=== PATIENT | female | born 1955 | race Caucasian/White ===

== ENCOUNTER → 2016-08-20 | Outpatient (CLI) | payer BC ==
[~2016-08-20] MED LIST: AMIT50TA3; AMIT50TA3 PO; AMITRIPTYLIN; BUTA1TAB46 PO; CITA40TA19; COLE1TAB PO; CTLP20T; DIALTIAZEM PO; DILT120T11 PO; DOXY100C2 PO; ESTRAD; GABA300C; KETO-22 PO; LORA1TAB; LVT.1T; MESA1.2T PO; METH4TAB PO; SITA1TAB2; VICTOZA SC
--- OUTSIDE RECORDS SUMMARY | 2016-08-20 14:35 | XMS REPORT | Continuity of Care Document ---
Author Author [facility] Organization [facility] Address Unknown Phone Unavailable Care Team Providers Care Advertising Manager Name Role Phone PCP Unavailable Source Comments Some departments are not documenting in the electronic medical record. If you do not see the information that you expected, contact Release of Information in the Health Information Management department at [phone] for further assistance in locating additional records.[facility] Active Allergies and Adverse Reactions Not on File Current Medications Not on file Active Problems Not on file Social History Tobacco Use Types Packs/Day Years Used Date Never Assessed Plan of Care Health Maintenance Due Date Last Done Comments Physical (Comprehensive) 1963 Exam Pertussis Vaccine 1967 Tetanus Vaccine 1973 Cervical Cancer Screening 1977 Breast Cancer Screening 1996 Colorectal Cancer 2006 Screening Influenza Vaccine 03/01/2016 Results from Last 3 Months Not on file
--- NOTE | 2016-08-22 09:41 | ECHOCARDIOGRAPHY REPORT ---
PROCEDURE PHYSICIAN: REJI CANSECO DATE OF PROCEDURE: 08/20/2016 TWO DIMENSIONAL ECHOCARDIOGRAM REPORT PRIMARY PHYSICIAN: Dr. Arguello OTHER PHYSICIAN: REFERRING PHYSICIAN: ORDERING PHYSICIAN: Dr. Yong Mcclain INDICATION FOR THE PROCEDURE: Palpitations. MEASUREMENTS DERIVED VALUES LV DIAMETER (LAX) NORMALS NORMALS Diastolic 3.6 (3.6-5.2) Eject. Fract. (60%+/-6%) Systolic (2.3-3.9) Diastolic Vol. % Shortening (0.22-0.42) Systolic Vol. Aortic Root 2.9 IVS THICKNESS Diastolic 1 (0.6-1.1) LVPW THICKNESS Diastolic 1.1 (0.6-1.1) LA DIAMETER Systolic 3.5 (2.1-3.7) DESCRIPTION: Two-dimensional echocardiography shows normal global left ventricular systolic function with normal regional wall motion. Aortic, mitral and tricuspid valve leaflets show good leaflet excursion. There is no significant pericardial effusion. Chamber sizes appear to be within normal limits. Aortic valve leaflet structure is difficult to visualize. It does, in some views, appear to be trileaflet. Doppler imaging shows trivial tricuspid regurgitation. Pulmonary artery systolic pressure is estimated 30 mmHg. There is no Doppler evidence of any significant valvular stenosis. Subcostal views are difficult and not adequate for evaluation for intracardiac shunt. Inferior vena cava appears to be of normal size. CONCLUSIONS: 1. Normal global left ventricular systolic function with an ejection fraction of approximately 60 to 65%. 2. Trivial tricuspid regurgitation. 3. Pulmonary artery systolic pressure is estimated to be approximately 30 mmHg. 4. No evidence of any significant valvular stenosis. Job ID: [id number] Dictated Date: 08/21/2016 16:55:42 Licensed Appraiser Date: 08/22/2016 09:34:07 / mayi
== END ==
LOC: CARD 14:32
DX: R00.2 Palpitations (principal); G43.D1 Abdominal migraine, intractable
CPT/HCPCS: 93306

== ENCOUNTER → 2016-08-23 | Outpatient (CLI) | payer BC ==
[~2016-08-23] MED LIST changes: +GADOBUTROL 10 MMOL/10 ML (GADAVIST) VIAL IV ONE
--- OUTSIDE RECORDS SUMMARY | 2016-08-23 14:24 | XMS REPORT | Continuity of Care Document ---
Author Author [facility] Organization [facility] Address Unknown Phone Unavailable Care Team Providers Care Dining Car Hop Name Role Phone PCP Unavailable Source Comments Some departments are not documenting in the electronic medical record. If you do not see the information that you expected, contact Release of Information in the Health Information Management department at [phone] for further assistance in locating additional records.[facility] Active Allergies and Adverse Reactions Not [...]
--- NOTE | 2016-08-23 15:50 | Diagnostic Imaging Report ---
PROCEDURE: MR angiography of the brain without the use of contrast. TECHNIQUE: 3D [id number] non contrast enhanced MR angiography of the head was performed. A source data was reformatted into rotating MIP projections. INDICATION: Migraines. FINDINGS: There are no previous MRA examinations available for comparison. The MRI brain exam of 06/18/2013 failed to show any sign of an acute intracranial abnormality. On this exam, there is no evidence for an aneurysm of the [place]. There is no sign of a hemodynamically significant stenosis either. The vertebral arteries were not well visualized, but the basilar artery is unremarkable. IMPRESSION: There is no evidence for an aneurysm of the [place]. There is no sign of an acute vascular abnormality either. Dictated by: Dictated on workstation # [id number]
--- NOTE | 2016-08-23 16:48 | Diagnostic Imaging Report ---
PROCEDURE: MR imaging of the brain with and without contrast. TECHNIQUE: Multiplanar, multisequence MR imaging of the brain was performed with and without contrast. INDICATION: Migraines. FINDINGS: The previous MRI brain exam of 06/18/2013 failed to show any sign of an acute intracranial abnormality. On this study, there is still no mass, shift of the midline, or hemorrhage to suggest an acute abnormality. There is no abnormal signal arising from the brain on the diffusion series to indicate an area of acute ischemia either. Furthermore, there is no abnormal enhancement on the post contrast sequence to suggest a neoplastic or infectious process. The ventricles are not abnormally dilated and similar in size to the prior exam. There are few very small areas of increased signal in the periventricular white matter bilaterally on the FLAIR series. These findings are similar to the prior exam. These areas of altered signal are nonspecific but may be secondary to encephalomalacia from microvascular ischemia. The sella is not enlarged and the expected carotid flow voids are evident bilaterally. The orbits are symmetrical and within normal limits. The sinuses are generally clear. The seventh and eighth nerve complexes are unremarkable. IMPRESSION: 1. There is no evidence for an acute intracranial abnormality. 2. There is no abnormal enhancement on the post contrast series to suggest a neoplastic or infectious process. 3. When compared to the previous exam, there does not appear to have been any significant change. Dictated by: Dictated on workstation # [id number]
--- NOTE | 2016-08-23 17:12 | Diagnostic Imaging Report ---
PROCEDURE: MR angiography neck with contrast. TECHNIQUE: Contrast-enhanced MR angiography of the neck was performed. Source data was reformatted into rotating MIP projection. INDICATION: Neck pain and headaches. FINDINGS: There are no previous MRA examinations available for comparison. The CTA neck exam performed on 03/20/2008 is not available for direct comparison either. The report from that exam failed to show any abnormality of the carotid systems. On this exam, there is no sign of a hemodynamically significant stenosis of the common or internal carotid arteries. The vertebral arteries are patent and codominant. There is no abnormality of the origins of the great vessels. IMPRESSION: 1. There is no evidence for a hemodynamically significant stenosis of the common or internal carotid arteries. 2. The vertebral arteries are codominant and generally unremarkable. Dictated by: Dictated on workstation # [id number]
== END ==
LOC: RAD 14:21
PROVIDERS: ATTEND Psychiatry & Neurology Neurology
DX: G43.D0 Abdominal migraine, not intractable (principal)
CPT/HCPCS: 70544; 70548; 70553

== ENCOUNTER → 2017-01-08 | Outpatient (CLI) | payer BC ==
[~2017-01-08] MED LIST changes: -GADOBUTROL 10 MMOL/10 ML (GADAVIST) VIAL IV ONE
--- NOTE | 2017-01-10 09:49 | Diagnostic Imaging Report ---
Bilateral screening mammogram 2D views with tomosynthesis The current study was also evaluated with a Computer Aided Detection (CAD) system. Indication: Screening. No current complaints stated on the questionnaire. COMPARISON: 11/30/15 FINDINGS: The breasts are composed of scattered fibroglandular densities with slightly more density in the central aspect of the breast parenchyma bilaterally. Scattered benign-appearing calcifications seen. Allowing for technique and positional differences, no suspicious change is seen. IMPRESSION: No significant change. ACR BI-RADS Category 2: Benign findings. Result letter will be mailed to the patient. Note: At least 10% of breast cancer is not imaged by mammography. Dictated by: Dictated on workstation # [id number]
== END ==
LOC: RAD 14:03
PROVIDERS: ATTEND Family Medicine
DX: Z12.31 Encounter for screening mammogram for malignant neoplasm of breast (principal)
CPT/HCPCS: 77067

== ENCOUNTER → 2017-06-07 | Outpatient (CLI) | payer BC ==
--- NOTE | 2017-06-10 10:47 | Diagnostic Imaging Report ---
EXAMINATION: Gated cardiac CTA without contrast for calcium scoring was performed. INDICATION: Chest pain. TECHNIQUE: A retrospective ECG gated cardiac CT was performed from the cardiac apex to the base without intravenous contrast and calcium scoring was obtained. FINDINGS: Please note the there is mild the cardiac motion artifact despite the ECG gating. No coronary artery calcifications are identified. The total calcium score is zero. The heart size is normal. There is no pericardial effusion. The visualized portions of the lungs demonstrate no nodule or significant consolidation. IMPRESSION: The total calcium score of zero suggests a very low likelihood of significant coronary artery disease. Dictated by: Dictated on workstation # [id number]
== END ==
LOC: RAD 10:55
PROVIDERS: ATTEND Physician Assistant Medical
DX: R07.89 Other chest pain (principal); I10 Essential (primary) hypertension
CPT/HCPCS: 75571

== ENCOUNTER 2017-07-26 05:36 | Outpatient (CLI) | payer BC ==
[~2017-07-26] VITALS: Ht 162.6 cm; Wt 88.5 kg
[2017-07-26] MEDS ORDERED: LEVO88TA54 PO (09:18)
[2017-07-26] MEDS ORDERED: CYAN100088 PO (09:18)
[2017-07-26] MEDS ORDERED: PANT40TA2 PO (09:18)
[2017-07-26] MEDS ORDERED: EMPA10TA PO (09:18)
[2017-07-26] MEDS ORDERED: FLUO20TA28 PO (09:18)
[2017-07-26] MEDS ORDERED: CHOL100048 PO (09:18)
[2017-07-26] MEDS ORDERED: AMIT100T2 PO (09:18)
[2017-07-26] MEDS ORDERED: NEBI5TAB8 PO (09:18)
[2017-07-26] MEDS ORDERED: ESTR1TAB24 PO (09:18)
[2017-07-26] MEDS ORDERED: ATOR20TA66 PO (09:18)
== END 2017-07-26 09:21 ==
LOC: PREOP 05:36
PROVIDERS: ATTEND Surgery
DX: Z01.818 Encounter for other preprocedural examination (principal); K21.9 Gastro-esophageal reflux disease without esophagitis; R13.10 Dysphagia, unspecified

== ENCOUNTER 2017-07-29 09:49 | Day surgery (SDC) | payer BC ==
[~2017-07-29] VITALS: Ht 162.6 cm; Wt 88.5 kg
[~2017-07-29 09:49] MED LIST changes: +AMIT100T2 PO; +ATOR20TA66 PO; +CHOL100048 PO; +CYAN100088 PO; +EMPA10TA PO; +ESTR1TAB24 PO; +FLUO20TA28 PO; +LEVO88TA54 PO; +NEBI5TAB8 PO; +PANT40TA2 PO
[2017-07-29] MEDS ORDERED: HURRICAINE EXT TUBE (BENZOCAINE) XX PRN (10:00)
[2017-07-29] MEDS ORDERED: NS IV 500 ML 500 ML IV PRN (10:00)
[2017-07-29 10:13] VITALS: BP 138/78
--- OUTSIDE RECORDS SUMMARY | 2017-07-29 10:16 | XMS REPORT | Continuity of Care Document ---
Author Author [facility] Organization [facility] Address Unknown Phone Unavailable Allergies Active Description Code Type Severity Reaction Onset Reported/Identified Relationship to Patient Clinical Status Yes metoclopramide [id number] Drug Allergy Mild N/A 05/19/2008 Yes codeine [id number] Drug Allergy Unknown N/A 01/04/2012 Medications There is no data. Problems Date Dx Coded Attending Type Code Diagnosis Diagnosed By 03/16/2010 Ot 535.40 03/16/2010 Ot V45.89 04/04/2010 Ot 307.81 04/04/2010 Ot 723.1 01/07/2012 Ot 244.9 HYPOTHYROIDISM NOS 01/07/2012 Ot 535.50 UNSP GASTRITIS GASTRODUODENITIS W/O ME 01/07/2012 Ot 787.91 DIARRHEA 01/07/2012 Ot V58.69 OTH MED,LT, CURRENT USE 02/02/2012 Ot 244.9 HYPOTHYROIDISM NOS 02/02/2012 Ot 250.00 DIAB JOSELIN WO COMPL, TYPE II OR UNSPEC TY 02/02/2012 Ot 333.94 RESTLESS LEGS SYNDROME 02/02/2012 Ot 401.9 HYPERTENSION NOS 02/02/2012 Ot 530.81 ESOPHAGEAL REFLUX 02/02/2012 Ot 780.60 FEVER, UNSPECIFIED 02/02/2012 Ot 780.96 GENERALIZED PAIN 02/02/2012 Ot 784.0 HEADACHE 02/02/2012 Ot 787.01 NAUSEA WITH VOMITING 05/14/2014 AXEL MEEHANP Ot 790.5 12/17/2014 AXEL MEEHANP Ot V76.12 06/20/2015 Ot V76.12 06/20/2015 Ot V76.12 06/20/2015 Ot 611.71 06/20/2015 Ot 722.52 06/20/2015 Ot 401.9 06/20/2015 Ot 490 06/20/2015 Ot V72.84 06/20/2015 Ot V76.12 06/20/2015 Ot 562.00 06/20/2015 Ot 786.50 06/20/2015 Ot 787.01 06/20/2015 Ot 780.60 06/20/2015 Ot 785.6 06/20/2015 Ot 789.00 06/20/2015 Ot 793.19 06/20/2015 QUINN JEFF, MACY Sorto Ot 721.0 06/20/2015 QUINN JEFF, MACY Sorto Ot 784.0 06/20/2015 SHARON SAMUELS DOLINE S Ot 611.72 06/20/2015 RIDINGS, CASEY 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 Ot 722.4 06/20/2015 RIDINGS, CASEY 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 Ot 737.30 06/20/2015 RIDINGS, CASEY 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 Ot 784.0 06/20/2015 RIDINGS, CASEY 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 Ot E000.8 06/20/2015 RIDINGS, CASEY 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 Ot E849.0 06/20/2015 RIDINGS, CASEY 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 Ot E888.9 06/20/2015 SHARON SAMUELS DOLINE S Ot 719.45 06/20/2015 CHARITY SAMUELS DOQUELINE S Ot 786.59 06/20/2015 CHARITY SAMUELS DOQUELINE S Ot V72.84 06/20/2015 AXEL MEEHAN ROPEWALK ROPE MAKER Ot V76.12 06/20/2015 SACHI JEFF, JOSE ELIAS Ot 722.51 06/20/2015 SACHI JEFF, JOSE ELIAS Ot 738.4 06/20/2015 AXEL MEEHANP Ot 790.5 06/20/2015 AXEL MEEHANP Ot V76.12 06/27/2015 Ot V76.12 06/27/2015 Ot V76.12 06/27/2015 Ot 611.71 06/27/2015 Ot 722.52 06/27/2015 Ot 401.9 06/27/2015 Ot 490 06/27/2015 Ot V72.84 06/27/2015 Ot V76.12 06/27/2015 Ot 562.00 06/27/2015 Ot 786.50 06/27/2015 Ot 787.01 06/27/2015 Ot 780.60 06/27/2015 Ot 785.6 06/27/2015 Ot 789.00 06/27/2015 Ot 793.19 06/27/2015 QUINN JEFF, MACY Sorto Ot 721.0 06/27/2015 QUINN JEFF, MACY Sorto Ot 784.0 06/27/2015 ARVIND HOSKINS, YOU S Ot 611.72 06/27/2015 RIDSASKIA, CASEY 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 Ot 722.4 06/27/2015 RIDINGS, CASEY 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 Ot 737.30 06/27/2015 RIDINGS, CASEY 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 Ot 784.0 06/27/2015 RIDINGS, CASEY 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 Ot E000.8 06/27/2015 RIDINGS, CASEY 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 Ot E849.0 06/27/2015 RIDINGS, CASEY 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 Ot E888.9 06/27/2015 ARVIND HOSKINS, YOU S Ot 719.45 06/27/2015 ARVIND HOSKINS YOU S Ot 786.59 06/27/2015 ARVIND HOSKINS YOU S Ot V72.84 06/27/2015 AXEL MEEHAN M ROPEWALK ROPE MAKER Ot V76.12 06/27/2015 SACHI JEFF, JOSE ELIAS Ot 722.51 06/27/2015 SACHI JEFF, JOSE ELIAS Ot 738.4 06/27/2015 AXEL MEEHAN M ROPEWALK ROPE MAKER Ot 790.5 06/27/2015 HERBIE MEEHANSA M R[employer]WALK ROPE MAKER Ot V76.12 06/27/2015 CHRISTOPHER ÁLVAREZ R[employer]WALK ROPE MAKER Ot E03.9 06/27/2015 CHRISTOPHER ÁLVAREZ R[employer]WALK ROPE MAKER Ot E11.9 06/27/2015 CHRISTOPHER ÁLVAREZ ROPEWALK ROPE MAKER Ot I10 06/27/2015 CHRISTOPHER ÁLVAREZ ROPEWALK ROPE MAKER Ot Z84.81 2015 CHRISTOPHER ÁLVAREZ ROPEWALK ROPE MAKER Ot E03.9 2015 CHRISTOPHER ÁLVAREZ ROPEWALK ROPE MAKER Ot E11.9 2015 CHRISTOPHER ÁLVAREZ ROPEWALK ROPE MAKER Ot I10 2015 CHRISTOPHER ÁLVAREZ ROPEWALK ROPE MAKER Ot Z84.81 07/13/2015 AXEL MEEHAN M ROPEWALK ROPE MAKER Ot R10.9 11/30/2015 Ot V76.12 OTH SCREEN MAMMO-MALIGN NEOPLASM OF ANDERS 11/30/2015 Ot 611.71 MASTODYNIA 11/30/2015 Ot 722.52 LUMB/ LUMBOSAC DISC DEGEN 11/30/2015 Ot 401.9 HYPERTENSION NOS 11/30/2015 Ot 490 BRONCHITIS NOS 11/30/2015 Ot V72.84 EXAM PRE- OPERATIVE NOS 11/30/2015 Ot V76.12 OTH SCREEN MAMMO-MALIGN NEOPLASM OF ANDERS 11/30/2015 Ot 562.00 DIVERTICULOSIS SML INTESTINE (W/O MENT O 11/30/2015 Ot 786.50 CHEST PAIN NOS 11/30/2015 Ot 787.01 NAUSEA WITH VOMITING 11/30/2015 Ot 780.60 FEVER, UNSPECIFIED 11/30/2015 Ot 785.6 ENLARGEMENT LYMPH NODES 11/30/2015 Ot 789.00 ABDOMINAL PAIN, UNSPECIFIED SITE 11/30/2015 Ot 793.19 OTHER NONSPECIFIC ABNORMAL FINDING OF MELANIE 11/30/2015 QUINN JEFF, MACY Sorto Ot 721.0 CERVICAL SPONDYLOSIS 11/30/2015 QUINN JEFF, MACY Sorto Ot 784.0 HEADACHE 11/30/2015 ARVIND HOSKINS, YOU S Ot 611.72 LUMP OR MASS IN BREAST 11/30/2015 RIDINGS, CASEY 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 Ot 722.4 CERVICAL DISC DEGEN 11/30/2015 RIDINGS, CASEY 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 Ot 737.30 IDIOPATHIC SCOLIOSIS 11/30/2015 RIDINGS, CASEY 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 Ot 784.0 HEADACHE 11/30/2015 RIDINGS, CASEY 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 Ot E000.8 OTHER EXTERNAL CAUSE STATUS 11/30/2015 RIDINGS, CASEY 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 Ot E849.0 ACCIDENT IN HOME 11/30/2015 RIDINGS, CASEY 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 Ot E888.9 FALL NOS 11/30/2015 MARILIANDROGELIO HOSKINS, YOU S Ot 719.45 JOINT PAIN-PELVIS 11/30/2015 CHARITY SAMUELS DOQUELINE S Ot 786.59 CHEST PAIN NEC 11/30/2015 MARILIANDROGELIO HOSKINS, YOU S Ot V72.84 EXAM PRE-OPERATIVE NOS 11/30/2015 AXEL MEEHAN Ot V76.12 OTH SCREEN MAMMO-MALIGN NEOPLASM OF ANDERS 11/30/2015 SACHI JEFF, JOSE ELIAS Ot 722.51 THORACIC DISC DEGEN 11/30/2015 SACHI JEFF, JOSE ELIAS Ot 738.4 ACQ SPONDYLOLISTHESIS 11/30/2015 AXEL MEEHAN ROPEWALK ROPE MAKER Ot 790.5 ABN SERUM ENZY LEVEL NEC 11/30/2015 AXEL MEEHAN ROPEWALK ROPE MAKER Ot V76.12 OTH SCREEN MAMMO-MALIGN NEOPLASM OF ANDERS 11/30/2015 CHRISTOPHER ÁLVAREZ ROPEWALK ROPE MAKER Ot E03.9 HYPOTHYROIDISM, UNSPECIFIED 11/30/2015 CHRISTOPHER ÁLVAREZ ROPEWALK ROPE MAKER Ot E11.9 TYPE 2 DIABETES MELLITUS WITHOUT COMPLIC 11/30/2015 CHRISTOPHER ÁLVAREZ ROPEWALK ROPE MAKER Ot I10 ESSENTIAL (PRIMARY) HYPERTENSION 11/30/2015 CHRISTOPHER ÁLVAREZ ROPEWALK ROPE MAKER Ot Z84.81 FAMILY HISTORY OF CARRIER OF GENETIC DIS 11/30/2015 AXEL MEEHAN ROPEWALK ROPE MAKER Ot R10.9 UNSPECIFIED ABDOMINAL PAIN 12/01/2015 YOU SAMUELS DO S Ot Z12.31 ENCNTR SCREEN MAMMOGRAM FOR MALIGNANT NE 12/21/2015 YOU SAMUELS DO S Ot Z12.31 ENCNTR SCREEN MAMMOGRAM FOR MALIGNANT NE 03/19/2016 Ot V76.12 OTH SCREEN MAMMO-MALIGN NEOPLASM OF ANDERS 03/19/2016 Ot 611.71 MASTODYNIA 03/19/2016 Ot 722.52 LUMB/ LUMBOSAC DISC DEGEN 03/19/2016 Ot 401.9 HYPERTENSION NOS 03/19/2016 Ot 490 BRONCHITIS NOS 03/19/2016 Ot V72.84 EXAM PRE- OPERATIVE NOS 03/19/2016 Ot V76.12 OTH SCREEN MAMMO-MALIGN NEOPLASM OF ANDERS 03/19/2016 Ot 562.00 DIVERTICULOSIS SML INTESTINE (W/O MENT O 03/19/2016 Ot 786.50 CHEST PAIN NOS 03/19/2016 Ot 787.01 NAUSEA WITH VOMITING 03/19/2016 Ot 780.60 FEVER, UNSPECIFIED 03/19/2016 Ot 785.6 ENLARGEMENT LYMPH NODES 03/19/2016 Ot 789.00 ABDOMINAL PAIN, UNSPECIFIED SITE 03/19/2016 Ot 793.19 OTHER NONSPECIFIC ABNORMAL FINDING OF MELANIE 03/19/2016 QUINN JEFF, MACY Sorto Ot 721.0 CERVICAL SPONDYLOSIS 03/19/2016 QUINN JEFF, MACY Sorto Ot 784.0 HEADACHE 03/19/2016 ARVIND HOSKINSSHARONYOU S Ot 611.72 LUMP OR MASS IN BREAST 03/19/2016 RIDINGS, CASEY 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 Ot 722.4 CERVICAL DISC DEGEN 03/19/2016 RIDINGS, CASEY 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 Ot 737.30 IDIOPATHIC SCOLIOSIS 03/19/2016 RIDINGS, CASEY 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 Ot 784.0 HEADACHE 03/19/2016 RIDINGS, CASEY 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 Ot E000.8 OTHER EXTERNAL CAUSE STATUS 03/19/2016 RIDINGS, CASEY 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 Ot E849.0 ACCIDENT IN HOME 03/19/2016 RIDSASKIA, CASEY 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 Ot E888.9 FALL NOS 03/19/2016 CHARITY SAMUELS DOQUELINE S Ot 719.45 JOINT PAIN-PELVIS 03/19/2016 CHARITY SAMUELS DOQUELINE S Ot 786.59 CHEST PAIN NEC 03/19/2016 SHARON SAMUELS DOLINE S Ot V72.84 EXAM PRE-OPERATIVE NOS 03/19/2016 AXEL MEEHAN ROPEWALK ROPE MAKER Ot V76.12 OTH SCREEN MAMMO-MALIGN NEOPLASM OF ANDERS 03/19/2016 SACHI JEFF, JOSE ELIAS Ot 722.51 THORACIC DISC DEGEN 03/19/2016 SACHI JEFF, JOSE ELIAS Ot 738.4 ACQ SPONDYLOLISTHESIS 03/19/2016 AXEL MEEHANP Ot 790.5 ABN SERUM ENZY LEVEL NEC 03/19/2016 AXEL MEEHAN ROPEWALK ROPE MAKER Ot V76.12 OTH SCREEN MAMMO-MALIGN NEOPLASM OF ANDERS 03/19/2016 CHRISTOPHER ÁLVAREZ ROPEWALK ROPE MAKER Ot E03.9 HYPOTHYROIDISM, UNSPECIFIED 03/19/2016 CHRISTOPHER ÁLVAREZ ROPEWALK ROPE MAKER Ot E11.9 TYPE 2 DIABETES MELLITUS WITHOUT COMPLIC 03/19/2016 CHRISTOPHER ÁLVAREZ ROPEWALK ROPE MAKER Ot I10 ESSENTIAL (PRIMARY) HYPERTENSION 03/19/2016 CHRISTOPHER ÁLVAREZ ROPEWALK ROPE MAKER Ot Z84.81 FAMILY HISTORY OF CARRIER OF GENETIC DIS 03/19/2016 AXEL MEEHAN ROPEWALK ROPE MAKER Ot R10.9 UNSPECIFIED ABDOMINAL PAIN 03/19/2016 SHARON SAMUELS DOLINE S Ot Z12.31 ENCNTR SCREEN MAMMOGRAM FOR MALIGNANT NE 03/20/2016 QUINN JEFF, MACY J Ot M54.10 RADICULOPATHY, SITE UNSPECIFIED 03/28/2016 QUINN JEFF, MACY Sorto Ot M54.10 RADICULOPATHY, SITE UNSPECIFIED 08/17/2016 Ot 611.71 MASTODYNIA 08/17/2016 Ot 722.52 LUMB/ LUMBOSAC DISC DEGEN 08/17/2016 Ot 401.9 HYPERTENSION NOS 08/17/2016 Ot 490 BRONCHITIS NOS 08/17/2016 Ot V72.84 EXAM PRE- OPERATIVE NOS 08/17/2016 Ot V76.12 OTH SCREEN MAMMO-MALIGN NEOPLASM OF ANDERS 08/17/2016 Ot 562.00 DIVERTICULOSIS SML INTESTINE (W/O MENT O 08/17/2016 Ot 786.50 CHEST PAIN NOS 08/17/2016 Ot 787.01 NAUSEA WITH VOMITING 08/17/2016 Ot 780.60 FEVER, UNSPECIFIED 08/17/2016 Ot 785.6 ENLARGEMENT LYMPH NODES 08/17/2016 Ot 789.00 ABDOMINAL PAIN, UNSPECIFIED SITE 08/17/2016 Ot 793.19 OTHER NONSPECIFIC ABNORMAL FINDING OF MELANIE 08/17/2016 QUINN JEFF, MACY Sorto Ot 721.0 CERVICAL SPONDYLOSIS 08/17/2016 QUINN JEFF, MACY Sorto Ot 784.0 HEADACHE 08/17/2016 YOU SAMUELS DO S Ot 611.72 LUMP OR MASS IN BREAST 08/17/2016 RIDINGS, CASEY 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 Ot 722.4 CERVICAL DISC DEGEN 08/17/2016 RIDINGS, CASEY 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 Ot 737.30 IDIOPATHIC SCOLIOSIS 08/17/2016 RIDINGS, CASEY 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 Ot 784.0 HEADACHE 08/17/2016 RIDINGS, CASEY 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 Ot E000.8 OTHER EXTERNAL CAUSE STATUS 08/17/2016 RIDINGS, CASEY 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 Ot E849.0 ACCIDENT IN HOME 08/17/2016 RIDINGS, CASEY 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 Ot E888.9 FALL NOS 08/17/2016 YOU SAMUELS DO S Ot 719.45 JOINT PAIN-PELVIS 08/17/2016 SHARON SAMUELS DOLINE S Ot 786.59 CHEST PAIN NEC 08/17/2016 YOU SAMUELS DO S Ot V72.84 EXAM PRE-OPERATIVE NOS 08/17/2016 AXEL MEEHAN ROPEWALK ROPE MAKER Ot V76.12 OTH SCREEN MAMMO-MALIGN NEOPLASM OF ANDERS 08/17/2016 SACHI JEFF, JOSE ELIAS Ot 722.51 THORACIC DISC DEGEN 08/17/2016 JOSE ELIAS KARIMI MD Ot 738.4 ACQ SPONDYLOLISTHESIS 08/17/2016 ULIJEANNEAXEL MENDOZA ROPEWALK ROPE MAKER Ot 790.5 ABN SERUM ENZY LEVEL NEC 08/17/2016 ULIJEANNECLARANAINAAXEL ROPEWALK ROPE MAKER Ot V76.12 OTH SCREEN MAMMO-MALIGN NEOPLASM OF ANDERS 08/17/2016 CHRISTOPHER ÁLVAREZ ROPEWALK ROPE MAKER Ot E03.9 HYPOTHYROIDISM, UNSPECIFIED 08/17/2016 CHRISTOPHER ÁLVAREZ ROPEWALK ROPE MAKER Ot E11.9 TYPE 2 DIABETES MELLITUS WITHOUT COMPLIC 08/17/2016 CHRISTOPHER ÁLVAREZ ROPEWALK ROPE MAKER Ot I10 ESSENTIAL (PRIMARY) HYPERTENSION 08/17/2016 CHRISTOPHER ÁLVAREZ ROPEWALK ROPE MAKER Ot Z84.81 FAMILY HISTORY OF CARRIER OF GENETIC DIS 08/17/2016 ULIJOEYAXEL ROPEWALK ROPE MAKER Ot R10.9 UNSPECIFIED ABDOMINAL PAIN 08/17/2016 YOU SAMUELS DO S Ot Z12.31 ENCNTR SCREEN MAMMOGRAM FOR MALIGNANT NE 08/17/2016 QUINN JEFF, MACY Sorto Ot M54.10 RADICULOPATHY, SITE UNSPECIFIED 08/24/2016 JODI JEFF, GARRICK Ot G43.D0 ABDOMINAL MIGRAINE, NOT INTRACTABLE 08/30/2016 OTHER, UNLISTED Ot G43.D1 ABDOMINAL MIGRAINE, INTRACTABLE 08/30/2016 OTHER, UNLISTED Ot R00.2 PALPITATIONS 09/05/2016 GARRICK ZAPATA MD Ot G43.D0 ABDOMINAL MIGRAINE, NOT INTRACTABLE 09/18/2016 GARRICK ZAPATA MD Ot G43.D0 ABDOMINAL MIGRAINE, NOT INTRACTABLE 01/09/2017 SHARON SAMUELS DOLINE S Ot Z12.31 ENCNTR SCREEN MAMMOGRAM FOR MALIGNANT NE 01/21/2017 CHARITY SAMUELS DOQUELINE S Ot Z12.31 ENCNTR SCREEN MAMMOGRAM FOR MALIGNANT NE 06/19/2017 ANTONIO KNOX Ot I10 ESSENTIAL (PRIMARY) HYPERTENSION 06/19/2017 ANTONIO KNOX Ot R07.89 OTHER CHEST PAIN Procedures There is no data. Results There is no data. Encounters ACCT No. Visit Date/Time Discharge Status Pt. Type Provider Facility Loc./Unit Complaint [id number] 07/26/2017 05:36:00 07/26/2017 09:21:00 DIS Outpatient LILLY CARUSO MD [facility] PREOP EGD [id number] 06/07/2017 10:55:00 06/07/2017 23:59:59 CLS Outpatient ANTONIO KNOX [facility] RAD PRECORDIAL CP,HTN [id number] 01/08/2017 14:03:00 01/08/2017 23:59:59 CLS Outpatient YOU SAMUELS DO [facility] RAD SCREENING [id number] 08/23/2016 14:21:00 08/23/2016 23:59:59 CLS Outpatient GARRICK ZAPATA MD [facility] RAD INTRACTABLE ABD MIGRAINE [id number] 08/20/2016 14:32:00 08/20/2016 23:59:59 CLS Outpatient OTHER, UNLISTED [facility] CARD PALPITATIONS [id number] 03/19/2016 14:37:00 03/19/2016 23:59:59 CLS Outpatient MACY BALL MD [facility] RAD RADICULOPATHY [id number] 11/30/2015 09:44:00 11/30/2015 23:59:59 CLS Outpatient YOU SAMUELS DO [facility] RAD SCREENING [id number] 06/27/2015 14:05:00 06/27/2015 23:59:59 CLS Outpatient AXEL MEEHAN R[employer]ALK [employer]OPE MAKER [facility] RAD ABDOMINAL PAIN [id number] 06/20/2015 12:45:00 06/20/2015 23:59:59 CLS Outpatient CHRISTOPHER ÁLVAREZ [employer]OPE MAKER [facility] ONC [id number] 06/14/2015 11:57:00 06/14/2015 23:59:59 CLS Preadmit CHRISTOPHER ÁLVAREZ [employer] ROPE MAKER [facility] ONC [id number] 11/08/2014 09:47:00 11/08/2014 23:59:59 CLS Outpatient AXEL MEEHAN [employer]OPE MAKER [facility] RAD SCREENING [id number] 04/27/2014 06:38:00 04/27/2014 23:59:59 CLS Outpatient AXEL MEEHAN [employer]OPE MAKER [facility] RAD ELEVATED LIPASE LEVELS [id number] 01/28/2014 12:44:00 01/28/2014 23:59:59 CLS Outpatient JOSE ELIAS KARIMI MD [facility] RAD BACK PAIN,RADICULAR LEG PAIN [id number] 01/14/2014 08:18:00 01/14/2014 23:59:59 CLS Outpatient AXEL MEEHAN [employer]OPE MAKER [facility] RAD SCREENING [id number] 11/24/2013 15:28:00 11/24/2013 23:59:59 CLS Outpatient MARILIANDER DO YOU S [facility] RAD PRE OP [id number] 10/26/2013 12:23:00 10/26/2013 23:59:59 CLS Outpatient MARYER DO YOU S [facility] CARD RT HIP, LT SIDED CP [id number] 07/29/2013 12:28:00 07/29/2013 23:59:59 CLS Outpatient MARYER DO YOU S [facility] RAD BREAST NODULE [id number] 07/28/2013 14:20:00 07/28/2013 23:59:59 CLS Outpatient RIDINGS, 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 [facility] RAD FALL, HEADACHE, BACK PAIN [id number] 06/18/2013 11:33:00 06/18/2013 23:59:59 CLS Outpatient MACY BALL MD [facility] RAD RADICULOPATHY,HEADACHES [id number] 11/30/2012 11:17:00 11/30/2012 23:59:59 CLS Outpatient [id number] 07/29/2017 11:00:00 PEN Preadmit ZULY JEFF, LILLY Hill [facility] ENDO GERD/DYSPHAGIA [id number] 07/04/2012 12:24:00 Document Registration [id number] 01/31/2012 00:05:00 Document Registration [id number] 01/10/2012 12:42:00 Document Registration [id number] 01/09/2012 08:04:00 Document Registration [id number] 01/07/2012 06:52:00 Document Registration [id number] 01/04/2012 09:09:00 Document Registration [id number] 10/05/2011 10:04:00 Document Registration [id number] 07/24/2011 13:38:00 Document Registration [id number] 01/09/2011 09:08:00 Document Registration [id number] 04/04/2010 14:38:00 Document Registration [id number] 03/16/2010 06:38:00 Document Registration [id number] 01/16/2010 08:13:00 Document Registration
--- NOTE | 2017-07-29 10:29 | History & Physicial ---
History of Present Illness History of Present Illness Reason for visit/HPI to undergo an upper endoscopy with possible balloon dilatation regarding dysphagia. Date of Admission 07/29/17 Date Seen by Provider: Jul 29, 2017 Time Seen by Provider: 10:27 I consulted on this patient on 07/29/17 10:27 Attending Physician Lilly Rojas MD Admitting Physician Kira Arguello DO Consult Allergies and Home Medications Allergies Coded Allergies: metoclopramide (Unverified Allergy, Mild, 05/19/08) Codeine (Unverified Allergy, 01/04/12) Home Medications Amitriptyline HCl 100 Mg Tablet, 100 MG PO HS, (Reported) Atorvastatin Calcium 20 Mg Tablet, 20 MG PO HS, (Reported) Cholecalciferol (Vitamin D3) 1,000 Unit Capsule, 1,000 UNIT PO DAILY, (Reported) Cyanocobalamin (Vitamin B-12) 1,000 Mcg Tablet, 1,000 MCG PO DAILY, (Reported) Empagliflozin 10 Mg Tablet, 10 MG PO DAILY, (Reported) Estradiol 1 Mg Tablet, 1 MG PO DAILY, (Reported) Fluoxetine HCl 20 Mg Tablet, 20 MG PO DAILY, (Reported) Levothyroxine Sodium 88 Mcg Tablet, 88 MCG PO DAILY, (Reported) Nebivolol HCl 5 Mg Tablet, 5 MG PO DAILY, (Reported) Pantoprazole Sodium 40 Mg Tablet.dr, 40 MG PO BID, (Reported) Past Xgkffxu-Vkbuei-Xhiomc Hx Patient Social History Marrital Status: Employed/Student: employed Alcohol Use: Denies Use Recreational Drug Use: No Smoking Status: Never a Smoker Recent Foreign Travel: No Contact w/other who traveled: No Recent Hopitalizations: No Recent Infectious Disease Expo: No Immunizations Up To Date Date of Influenza Vaccine: Mar 31, 2016 Seasonal Allergies Seasonal Allergies: No Surgeries Yes Bladder Surgery, Gallbladder, Hysterectomy Respiratory No Cardiovascular No Neurological Yes Headaches /Migraines, Neuropathy Reproductive System Hx Reproductive Disorders: No Sexually Transmitted Disease: No Genitourinary No Gastrointestinal Yes Gastroesophageal Reflux, Hiatal Hernia Musculoskeletal Yes Arthritis, Fibromyalgia Endocrine History of Endocrine Disorders: Yes Endocrine Disorders: Hypothyroidsim HEENT History of HEENT Disorders: No Cancer No Psychosocial History of Psychiatric Problem: No Constitutional: no symptoms reported EENTM: no symptoms reported Respiratory: no symptoms reported Cardiovascular: no symptoms reported Gastrointestinal: see HPI Genitourinary: no symptoms reported Musculoskeletal: no symptoms reported Skin: no symptoms reported Psychiatric/Neurological: No Symptoms Reported Physical Exam Vital Signs Vital Sign - Last 12Hours 07/29/17 10:13 Temp 98.0 Pulse 74 Resp 16 B/P (MAP) 138/78 (98) Pulse Ox 99 O2 Delivery Room Air Capillary Refill : General Appearance: No Apparent Distress HEENT: Normal ENT Inspection Neck: Normal Inspection Respiratory: Lungs Clear Cardiovascular: Regular Rate, Rhythm Gastrointestinal: Non Tender, Soft Extremity: Normal Inspection Neurologic/Psychiatric: Alert, Oriented x3 Skin: Warm/Dry Assessment/Plan Assessment and Plan lady with symptoms of reflux disease and new onset of dysphagia. Possible stricture to be considered. Upper endoscopy with balloon dilatation if indicated. Discussed in detail. Problems: LILLY ROJAS MD Jul 29, 2017 10:29 am
--- NOTE | 2017-07-29 10:29 | Conscious Sedation/ASA ---
Conscious Sedation Pre-Proced Time Reviewed: 10:29 ASA Class: 2 Airway Mallampati Classification: (north fork appropriate class) I. II. III, IV Lungs Heart ASA score ASA 1: a normal healthy patient ASA 2: a patient with a mild systemic disease (mid diabetes, controlled hypertension, obesity ASA 3: a patient with a severe systemic disease that limits activity (angina , COPD, prior Myocardial infarction) ASA 4: a patient with an incapacitating disease that is a constant threat to life (CHF, renal failure) ASA 5: a moribund patient not expected to survive 24 hrs. (ruptured aneurysm) ASA 6: a declared brain patient whose organs are being harvested. For emergent operations, add the letter E after the classification Grade 1 Sedation Plan: Discussed options with patient/fam Note The patient is an appropriate candidate to undergo the planned procedure, sedation, and anesthesia. The patient immediately re-assessed prior to indication. LILLY CARUSO MD Jul 29, 2017 10:29 am
[2017-07-29] MEDS ORDERED: PROMETHAZINE INJ 25 MG/ML (PHENERGAN) AMP ONE (10:39)
[2017-07-29] MEDS ORDERED: NS IV 500 ML 500 ML ONE (10:40)
[2017-07-29] MEDS ORDERED: fentaNYL INJECTION 100 MCG/2 ML AMP ONE (10:47)
[2017-07-29] MEDS ORDERED: MIDAZOLAM 2 MG/2 ML (VERSED) VIAL ONE ×4 (10:47→11:04)
[2017-07-29] MEDS ORDERED: HURRICAINE EXT TUBE (BENZOCAINE) ONE (10:48)
[2017-07-29] MEDS ORDERED: PROMETHAZINE INJ 25 MG/ML (PHENERGAN) AMP IVP ONE (11:00)
[2017-07-29] MEDS: MIDAZOLAM 2 MG/2 ML (VERSED) VIAL IVP PRN ×4 (11:02→11:11)
[2017-07-29] MEDS: fentaNYL INJECTION 100 MCG/2 ML AMP IVP PRN ×2 (11:06→11:09)
--- NOTE | 2017-07-29 11:15 | Endo Procedure Record ---
Endo Procedure Report Date of Procedure Last Colonoscopy: Yes (2015) Jul 29, 2017 Surgeon (s) LILLY CARUSO MD Post Procedure/Op Diagnosis Intact fundoplication. Esophageal and gastric mucosa normal. No duodenal ulceration Procedure Performed Upper endoscopy Description of Procedure Anesthesia Type: Conscious Sedation Specimen(s) collected/removed none Description of the Procedure Indication for the procedure: This lady came in for an upper endoscopy to evaluate ongoing symptoms of reflux, despite having undergone fundoplication many years ago. Informed consent was obtained after reviewing the procedure in detail. Description of the procedure: She was placed in left lateral decubitus position and her vital signs were monitored. Conscious sedation was achieved using Versed and fentanyl. The flexible gastroscope was introduced down the esophagus , past the stomach, into the proximal duodenum. Findings Esophagus: Normal mucosa without any evidence of inflammation. The fundoplication itself was intact. Stomach and duodenum were normal She tolerated the procedure well and was taken back to the nursing area in a stable condition. Impression: Symptoms of reflux despite successful fundoplication. No endoscopic changes noticed and therefore it would be reasonable to obtain 24- hour pH manometry. These studies would be arranged. Copies To: YOU SAMUELS XAVIER M MD Jul 29, 2017 11:15 am
--- NOTE | 2017-07-29 11:16 | Discharge Inst-Simple/Standard ---
Discharge Inst-Standard Discharge Medications New, Converted or Re-Newed RX: Other Patient Instructions/Follow Up Plan of Care/Instructions/FU: My office staff will contact her regarding esophageal manometry and 24-hour pH study Activity as Tolerated: Yes Discharge Diet: No Restrictions LILLY CARUSO MD Jul 29, 2017 11:16 am
[2017-07-29 11:40] VITALS: BP 115/63
[2017-07-29 12:05] VITALS: BP 104/61
[2017-07-29 12:28] VITALS: BP 104/61
== END 2017-07-29 12:20 | disposition home or self-care (01) ==
LOC: ENDO 09:49
PROVIDERS: ATTEND Surgery
DX: K21.9 Gastro-esophageal reflux disease without esophagitis (principal); E03.9 Hypothyroidism, unspecified; M79.7 Fibromyalgia; Z88.5 Allergy status to narcotic agent; Z88.8 Allergy status to other drugs, medicaments and biological substances; Z79.899 Other long term (current) drug therapy

== ENCOUNTER → 2017-11-11 | Outpatient (CLI) | payer BC ==
--- NOTE | 2017-11-11 14:12 | Diagnostic Imaging Report ---
PROCEDURE: CT head without contrast. TECHNIQUE: Multiple contiguous axial images were obtained through the brain without the use of intravenous contrast. INDICATION: Memory loss. COMPARISON: Comparison is made with prior head CT from 07/28/2013. FINDINGS: Ventricles and sulci are within normal limits. No sulcal effacement, midline shift, or hemorrhage is detected. Cisterns are patent. Visualized paranasal sinuses are clear. IMPRESSION: No acute intracranial process is detected. Dictated by: Dictated on workstation # [id number]
--- NOTE | 2017-11-11 15:25 | Diagnostic Imaging Report ---
INDICATION: Memory loss and cough. COMPARISON: 11/24/2013. FINDINGS: Two views of the chest are obtained. Heart size is normal. The pulmonary vessels appear unremarkable. There is no pneumothorax, mediastinal widening, or pleural fluid. The lungs are clear. The osseous structures appear unremarkable. IMPRESSION: No acute abnormality is demonstrated. No interval change from the prior study. Dictated by: Dictated on workstation # [id number]
== END ==
LOC: RAD 13:29
PROVIDERS: ATTEND Family Medicine
DX: R41.3 Other amnesia (principal); R05 Cough
CPT/HCPCS: 70450; 71046

== ENCOUNTER → 2017-11-13 | Outpatient (CLI) | payer BC ==
[~2017-11-13] MED LIST changes: +RT-ALBUTEROL SULF 2.5 MG/3 ML PRE-MIX VIAL INH ONE
== END ==
LOC: RT 13:16
PROVIDERS: ATTEND Family Medicine
DX: R05 Cough (principal)
CPT/HCPCS: 94060; 94726; 94729

== ENCOUNTER 2017-12-10 20:45 | Outpatient (CLI) | payer BC ==
[~2017-12-10 20:45] MED LIST changes: -RT-ALBUTEROL SULF 2.5 MG/3 ML PRE-MIX VIAL INH ONE
== END 2017-12-11 06:35 | disposition home or self-care (01) ==
LOC: SLEEP 20:45
PROVIDERS: ATTEND Internal Medicine Critical Care Medicine
DX: G47.10 Hypersomnia, unspecified (principal); G47.00 Insomnia, unspecified; R53.83 Other fatigue
CPT/HCPCS: 95810

== ENCOUNTER → 2018-01-16 | Outpatient (CLI) | payer BC ==
--- NOTE | 2018-01-16 13:37 | Diagnostic Imaging Report ---
EXAM: Ultrasound thyroid. DATE: January 16, 2018. COMPARISON: CT head and neck July 28, 2013. INDICATION: 62-year-old female, thyromegaly. FINDINGS: Two-dimensional grayscale and color Doppler images were obtained of the thyroid. Right lobe of the thyroid: The right lobe of the thyroid has uniform echotexture. There are no solid or cystic parenchymal distorting masses of the right thyroid. The right lobe of the thyroid measures 3.2 x 1.3 x 1.3 cm. Left lobe of the thyroid: There is an oval hypoechoic nodule adjacent to the posterior aspect of the left lobe of the thyroid measuring 9.4 x 6.3 x 7.6 mm in size. This potentially could reflect a parathyroid adenoma versus an exophytic thyroid nodule. The left lobe of the thyroid measures 4.2 x 1.2 x 0.9 cm. Isthmus: The thyroid isthmus is unremarkable. IMPRESSION: 1. Oval hypoechoic nodule along the posterior aspect of the left lobe of the thyroid measuring 9 x 6 x 8 mm in size which may potentially reflect parathyroid adenoma versus exophytic thyroid nodule. Recommend correlation with laboratory values and potentially nuclear medicine sestamibi imaging for further evaluation. Dictated by: Dictated on workstation # [id number]
== END ==
LOC: RAD 12:42
PROVIDERS: ATTEND Nurse Practitioner Family
DX: E04.2 Nontoxic multinodular goiter (principal); N64.4 Mastodynia
CPT/HCPCS: 76536

== ENCOUNTER → 2018-01-17 | Outpatient (CLI) | payer BC ==
--- NOTE | 2018-01-17 13:14 | Diagnostic Imaging Report ---
INDICATION: Left breast pain. COMPARISON: 01/08/2017 and 11/30/2015. TECHNIQUE: 2D and 3D bilateral diagnostic mammography was performed with CAD. FINDINGS: Scattered fibroglandular densities are identified bilaterally. There are scattered benign calcifications. No mass or malignant appearing microcalcifications are seen. The axillae are unremarkable. IMPRESSION: No mammographic features suspicious for malignancy are identified. Even so, sonographic interrogation of the left breast is recommended for further evaluation. ACR BI-RADS Category 0: Incomplete. (Needs additional imaging evaluation). Result letter will be mailed to the patient. Note: At least 10% of breast cancer is not imaged by mammography. Dictated by: Dictated on workstation # [id number]
--- NOTE | 2018-01-17 13:54 | Diagnostic Imaging Report ---
Indication: Left breast pain. Correlation is made with diagnostic mammogram earlier the same day. Sonographic interrogation of all 4 quadrants in the retroareolar region of the left breast was performed. Axilla was also evaluated. There are small lymph nodes at the 1:30 location of the left breast approximately 15 cm from the nipple. Lymph node measures approximately 1.5 x 0.9 cm. The left axillary node measures 1.9 x 1.2 cm. No other abnormalities are seen. Impression: BI-RADS 2 No suspicious sonographic abnormality is seen to account for the patient's pain. Minimally prominent lymph nodes in the upper outer left breast and left axilla are noted, nonspecific. Dictated by: Dictated on workstation # [id number]
--- NOTE | 2018-01-17 14:08 | Diagnostic Imaging Report ---
PROCEDURE: CT neck soft tissue without contrast. TECHNIQUE: Multiple contiguous axial images were obtained through the neck without the use of intravenous contrast. INDICATION: Left thyroidal or parathyroidal nodule noted at earlier ultrasound. CT performed as further investigation. Noncontrast enhanced soft tissue neck CT performed. Thyroid gland is small and heterogeneous without discrete measurable mass or mass effect. Its lobation posteriorly noted on earlier ultrasound is not reproduced at this exam. No parathyroidal mass or lymphadenopathy. Nasopharynx, oropharynx and hypopharynx normal. The parotid and submandibular appeared normal. Bony structures unremarkable. Thoracic inlet and pulmonary apices unremarkable. Degenerative changes to the lower cervical spine present. No acute osseous abnormality of the skull base appeared unremarkable. IMPRESSION: Somewhat heterogeneous and small thyroid appeared nonfocal with no exophytic mass or parathyroidal nodule. No evidence for lymphadenopathy at this nonenhanced exam. No airway embarrassment, fluid collection, inflammatory process or acute abnormalities. Dictated by: Dictated on workstation # [id number]
== END ==
LOC: RAD 12:41
PROVIDERS: ATTEND Nurse Practitioner Family
DX: E04.1 Nontoxic single thyroid nodule (principal); E21.5 Disorder of parathyroid gland, unspecified; N64.4 Mastodynia
CPT/HCPCS: 70490; 76641; 77066

== ENCOUNTER 2018-01-21 12:24 | Outpatient (RCR) | payer BC ==
--- NOTE | 2018-01-22 08:47 | Diagnostic Imaging Report ---
PA and lateral chest at 1:12 PM on 01/21/18. INDICATION: Dyspnea. FINDINGS: Heart size is within normal limits and stable when compared to 11/11/2017. The lungs remain clear. There is still no sign of failure, pneumonia or pleural effusion to suggest an acute abnormality. The mediastinum is not widened. The osseous structures are intact. IMPRESSION: There is no evidence for active disease. When compared to the prior study, there has been no significant change. Dictated by: Dictated on workstation # [id number]
== END 2018-01-28 | disposition home or self-care (01) ==
LOC: CARD 12:24
PROVIDERS: ATTEND Nurse Practitioner Family
DX: R05 Cough (principal); R06.00 Dyspnea, unspecified; R00.1 Bradycardia, unspecified
CPT/HCPCS: 71046; 93225; 93226

== ENCOUNTER → 2018-03-04 | Outpatient (CLI) | payer BC ==
--- NOTE | 2018-03-04 15:37 | Diagnostic Imaging Report ---
INDICATION: Hypothyroidism. TECHNIQUE: Patient was administered 20.3 mCi technetium 99m sestamibi and 20 minute and 2 hour delayed imaging over the neck and upper chest was performed. SPECT CT imaging was also performed. FINDINGS: 20 minute image demonstrates expected activity throughout both lobes of the thyroid gland. Salivary gland activity is also seen. No abnormal accumulation is identified on the delayed images to suggest a parathyroid adenoma. No abnormal uptake in the upper chest is seen. IMPRESSION: Normal parathyroid scan. There are no findings to suggest parathyroid adenoma. Dictated by: Dictated on workstation # [id number]
== END ==
LOC: CARD 10:24
PROVIDERS: ATTEND Internal Medicine
DX: E03.9 Hypothyroidism, unspecified (principal)
CPT/HCPCS: 78072

== ENCOUNTER → 2018-05-28 | Outpatient (CLI) | payer BC ==
[~2018-05-28] MED LIST changes: +BARIUM SUSPENSION 105% (LIQUID POLIBAR PLUS) 240 ML/DOSE PO ONE; +BARIUM SUSPENSION 60% (LIQUID EZ PAQUE) 240 ML DOSE PO ONE
--- NOTE | 2018-05-28 09:18 | Diagnostic Imaging Report ---
PROCEDURE: US abdomen complete. TECHNIQUE: Multiple real-time grayscale images were obtained over the abdomen in various projections. INDICATION: Right upper quadrant pain. The liver is normal in size at 17.4 cm. No discrete liver mass is identified. The portal vein is patent and shows normal direction of flow. Gallbladder is surgically absent. No biliary ductal dilatation is seen. Pancreatic body and tail are obscured by bowel gas. The spleen is normal in size at 9.6 cm. Aorta is non-aneurysmal. IVC is unremarkable. The right and left kidneys are unremarkable. No hydronephrosis is seen. There is no ascites. IMPRESSION: Status post cholecystectomy. No significant abnormality is detected. Dictated by: Dictated on workstation # [id number]
--- NOTE | 2018-05-28 09:29 | Diagnostic Imaging Report ---
INDICATION: Right upper quadrant pain as well as mid chest burning. Patient has history of acid reflux. Patient reports having Lee fundoplication surgery twice. TECHNIQUE: The patient ingested thin and thick barium and imaging of the esophagus was performed. A total of 1 minute 27 seconds of fluoroscopy was utilized. FINDINGS: The esophagus has a fairly smooth contour. There is a segment of persistent narrowing in the distal esophagus which is most likely secondary to Lee fundoplication. No obstruction to the passage of the contrast bolus into the stomach is identified. No gastroesophageal reflux was demonstrated. Images of the stomach are unremarkable. IMPRESSION: Status post Lee fundoplication. No significant abnormality is detected. Dictated by: Dictated on workstation # [id number]
== END ==
LOC: RAD 07:13
PROVIDERS: ATTEND Nurse Practitioner Family
DX: R10.11 Right upper quadrant pain (principal); Z87.19 Personal history of other diseases of the digestive system; Z98.890 Other specified postprocedural states; Z90.49 Acquired absence of other specified parts of digestive tract
CPT/HCPCS: 74220; 76700

== ENCOUNTER 2018-07-23 11:35 | Outpatient (CLI) | payer BC ==
[~2018-07-23] VITALS: Ht 162.6 cm; Wt 93.9 kg
[2018-07-23 11:35] VITALS: BP 122/75
[~2018-07-23 11:35] MED LIST changes: -BARIUM SUSPENSION 105% (LIQUID POLIBAR PLUS) 240 ML/DOSE PO ONE; -BARIUM SUSPENSION 60% (LIQUID EZ PAQUE) 240 ML DOSE PO ONE
[2018-07-23] MEDS ORDERED: MEPERIDINE (DEMEROL) INJ 50 MG/ML IV PRN (12:00)
[2018-07-23] MEDS ORDERED: ONDANSETRON 4 MG/2 ML (SDV) Z0FRAN IV PRN (12:00)
[2018-07-23] MEDS ORDERED: CATHETER FLUSH 10 ML SYR IV PRN (12:00)
[2018-07-23 12:08] LABS: HEMOGLOBIN 14.3 G/DL (11.5-16.0); MEAN PLATELET VOLUME 8.8 FL (7.4-10.4); RED BLOOD COUNT 4.6 10^6/uL (4.35-5.85); RED CELL DISTRIBUTION WIDTH 13.8 % (10.0-14.5); WHITE BLOOD COUNT 8.5 10^3/uL (4.3-11.0)
[2018-07-23 12:26] LABS: ALANINE AMINOTRANSFERASE 10 U/L (0-55); ALKALINE PHOSPHATASE 71 U/L (40-136); BILIRUBIN,TOTAL 0.3 MG/DL (0.1-1.0); BUN/CREATININE RATIO 15; CALCIUM 9.2 MG/DL (8.5-10.1); CARBON DIOXIDE 19 MMOL/L (21-32); CHLORIDE 108 MMOL/L (98-107); GFR ESTIMATED > 60; GLUCOSE 108 MG/DL (70-105); POTASSIUM 4.2 MMOL/L (3.6-5.0); SODIUM 137 MMOL/L (135-145); TOTAL PROTEIN 7.5 GM/DL (6.4-8.2)
[2018-07-23] MEDS: LACTATED RINGERS 1,000 ML IV SCH ×2 (12:34→13:42)
[2018-07-23] MEDS ORDERED: KETOROLAC 30 MG/ML VIAL IVP ONE (14:15)
[2018-07-23 14:50] VITALS: BP 122/75
== END 2018-07-23 14:50 | disposition home or self-care (01) ==
LOC: SDC 11:35
PROVIDERS: ATTEND Internal Medicine
DX: E86.0 Dehydration (principal); R09.02 Hypoxemia; G43.909 Migraine, unspecified, not intractable, without status migrainosus
CPT/HCPCS: 36415; 80053; 83735; 85027; 86141; 96374; 96375

== ENCOUNTER → 2018-08-12 | Outpatient (CLI) | payer BC ==
--- NOTE | 2018-08-12 14:27 | Diagnostic Imaging Report ---
INDICATION: Cough and wheezing. TECHNIQUE: PA and lateral views of the chest were obtained. COMPARISON: 01/21/2018. FINDINGS: The heart and pulmonary vascularity are within normal limits. There is no pneumothorax or consolidation. There is slightly increased density in the perihilar regions which may be due to minimal edema or pneumonitis. There is no significant pleural fluid. IMPRESSION: Probable minimal bilateral perihilar edema and/or pneumonitis without consolidation or other significant change from the previous study. The report was called to NO Jon, by JOHNNY@ 2:25PM. Dictated by: Dictated on workstation # [id number]
== END ==
LOC: RAD 13:54
PROVIDERS: ATTEND Nurse Practitioner Family
DX: R05 Cough (principal); R50.9 Fever, unspecified; R06.2 Wheezing
CPT/HCPCS: 71046

== ENCOUNTER → 2018-12-01 | Outpatient (CLI) | payer BC ==
[~2018-12-01] MED LIST changes: +HOLD METFORMIN - RECEIVED CONTRAST 20 ML VIAL IV SCH; +IOHEXOL 350 MG/ML 100 ML (OMNIPAQUE 350) VIAL IV ONE; +NS 100 ML (IVPB) BAG IV ONE
--- NOTE | 2018-12-01 14:19 | Diagnostic Imaging Report ---
CLINICAL INDICATION: Patient with elevated parathyroid hormone. Attention for parathyroid. EXAM: CT scan of the neck soft tissue performed without and with 75 cc of Omnipaque 350 IV contrast. Sagittal and coronal reformatted images are created. COMPARISON: CT scan of the neck soft tissue performed without IV contrast dated 01/17/2018. Nuclear medicine sestamibi parathyroid scan dated 03/04/2018. CT scan of the cervical spine without contrast dated 04/04/2010. Whole body PET CT scan dated 09/19/2010. FINDINGS: There is stable appearance of the small thyroid gland which is slightly heterogeneous in the left thyroid and posterior right thyroid region. There is no measurable thyroid mass. There is a 0.7 cm x 1.3 cm x 1.5 cm (AP x Trans x CC) oval-shaped mass in the low right posterior paratracheal region seen on series 4, image 58. This was seen on the prior CT scan and previously measured 0.6 cm x 1.0 cm x 1.1 cm (AP x Trans x CC). This oval-shaped area was also seen on the comparison cervical spine CT scan dated 04/04/2010 and measured roughly 0.6 cm x 1.2 cm x 1.4 cm (AP x Trans x CC). This is most consistent with a lymph node. There is an oval-shaped mass seen laterally adjacent to the aortic arch in the upper mediastinum, which measures 1.1 cm x 0.6 cm x 1.0 cm (AP x Trans x CC). This oval-shaped mass is not imaged on the prior CT scans. This has a configuration and location of a lymph node. This was noted to be smaller on the comparison whole-body PET/CT scan dated 09/19/2010, but motion artifact does limits its evaluation. There is no evidence of developing mass in the expected regions of the parathyroid glands. There are bilateral neck lymph nodes seen which are subcentimeter in short axis. The nasopharynx, oropharynx, hypopharynx, and laryngeal soft tissue structures are unremarkable. Visualized portions of the tongue, oral cavity, and sublingual and submandibular regions show no significant abnormality. The neck vascular structures are unremarkable. Visualized upper lung gomez are clear. There are cervical spine degenerative spurs noted and straightening of the cervical spine posture. There is no significant change to the bony irregularity and bony thickening involving the C3, C4, C5 left lamina, compared to the prior CT scan dated 01/17/2018. There is bony bridging seen in the region. IMPRESSION: 1: There is a 1.1 cm oval-shaped nodular mass in the upper mediastinum, which is laterally adjacent to the left side of the aortic arch. This is most likely representing a lymph node. This was noted to be smaller on the comparison whole-body PET/CT scan dated 09/19/2010, but motion artifact does limit its evaluation. 2: There is a lymph node seen in the low neck right posterior paratracheal region, which has not significantly changed over time. 3: The remainder of the neck shows no developing mass or other significant abnormality. Dictated by: Dictated on workstation # [id number]
== END ==
LOC: RAD 12:48
PROVIDERS: ATTEND Nurse Practitioner Family
DX: J98.59 Other diseases of mediastinum, not elsewhere classified (principal); R94.6 Abnormal results of thyroid function studies; R79.89 Other specified abnormal findings of blood chemistry
CPT/HCPCS: 70492

== ENCOUNTER 2018-12-18 05:35 | Outpatient (CLI) | payer BC ==
[~2018-12-18] VITALS: Ht 162.6 cm; Wt 93.9 kg
[~2018-12-18 05:35] MED LIST changes: -HOLD METFORMIN - RECEIVED CONTRAST 20 ML VIAL IV SCH; -IOHEXOL 350 MG/ML 100 ML (OMNIPAQUE 350) VIAL IV ONE; -NS 100 ML (IVPB) BAG IV ONE
[2018-12-18] MEDS ORDERED: LORA1TAB PO (11:35)
[2018-12-18] MEDS ORDERED: CARV12.53 PO (11:35)
[2018-12-18] MEDS ORDERED: BUTA1TAB9 PO (11:35)
[2018-12-18] MEDS ORDERED: DULO60CA58 PO (11:35)
[2018-12-18] MEDS ORDERED: SEMA0.25 SQ (11:35)
[2018-12-18] MEDS ORDERED: CYCL10TA9 PO (11:35)
[2018-12-18] MEDS ORDERED: BUSP5TAB59 PO (11:35)
[2018-12-18] MEDS ORDERED: ZOLP5TAB PO (11:35)
[2018-12-18] MEDS ORDERED: RT-ALBUINH IH (11:38)
== END 2018-12-18 11:50 | disposition home or self-care (01) ==
LOC: PREOP 05:35
PROVIDERS: ATTEND Obstetrics & Gynecology
DX: Z01.818 Encounter for other preprocedural examination (principal)

== ENCOUNTER 2018-12-25 09:16 | Day surgery (SDC) | payer BC ==
[2018-12-25] VITALS (12 sets, daily range): BP systolic 97–140; BP diastolic 64–83
[~2018-12-25] VITALS: Ht 162.6 cm; Wt 93.9 kg
[~2018-12-25 09:16] MED LIST changes: +BUSP5TAB59 PO; +BUTA1TAB9 PO; +CARV12.53 PO; +CYCL10TA9 PO; +DULO60CA58 PO; +LORA1TAB PO; +RT-ALBUINH IH; +SEMA0.25 SQ; +ZOLP5TAB PO
[2018-12-25] MEDS ORDERED: LACTATED RINGERS 1,000 ML IV PRN (09:54)
[2018-12-25] MEDS ORDERED: SCOPOLAMINE 1.5 MG (TRANSDERM-SCOP) PATCH TOP ONE (10:15)
[2018-12-25] MEDS ORDERED: ONDANSETRON 4 MG/2 ML (SDV) Z0FRAN IV ONE (10:15)
[2018-12-25] MEDS ORDERED: FAMOTIDINE 20MG/2ML IV (PEPCID) IV ONE (10:15)
[2018-12-25] MEDS ORDERED: MIDAZOLAM 2 MG/2 ML (VERSED) VIAL IV ONE (10:15)
[2018-12-25 10:22] LABS: BASOPHILS % (AUTO) 0 % (0-10); EOSINOPHILS # (AUTO) 0.3 10^3/uL (0.0-0.3); EOSINOPHILS % (AUTO) 4 % (0-10); HEMATOCRIT 40 % (35-52); HEMOGLOBIN 13.2 G/DL (11.5-16.0); LYMPHOCYTES # (AUTO) 1.9 X 10^3 (1.0-4.0); LYMPHOCYTES % (AUTO) 24 % (12-44); MEAN CORPUSCULAR HEMOGLOBIN 31 PG (25-34); MEAN CORPUSCULAR HGB CONC 33 G/DL (32-36); MEAN CORPUSCULAR VOLUME 94 FL (80-99); MEAN PLATELET VOLUME 8.8 FL (7.4-10.4); MONOCYTES # (AUTO) 0.6 X 10^3 (0.0-1.0); MONOCYTES % (AUTO) 8 % (0-12); NEUTROPHILS # (AUTO) 4.9 X 10^3 (1.8-7.8); NEUTROPHILS % (AUTO) 63 % (42-75); PLATELET COUNT 430 10^3/uL (130-400); RED CELL DISTRIBUTION WIDTH 14.5 % (10.0-14.5); WHITE BLOOD COUNT 7.8 10^3/uL (4.3-11.0)
--- NOTE | 2018-12-25 11:57 | Progress Note-Pre Operative ---
Pre-Operative Progress Note H&P Reviewed The H&P was reviewed, patient examined and no changes noted. Date Seen by Provider: Dec 25, 2018 Time Seen by Provider: 11:00 Date H&P Reviewed: Dec 25, 2018 Time H&P Reviewed: 11:00 Pre-Operative Diagnosis: Rectocele ABIEL RAINEY DO Dec 25, 2018 11:57
[2018-12-25] MEDS ORDERED: ANTACID SUSP 30 ML UDC (MYLANTA) PO PRN (12:00)
[2018-12-25] MEDS ORDERED: ZOLPIDEM 5 MG (AMBIEN) TAB PO PRN (12:00)
[2018-12-25] MEDS ORDERED: SIMETHICONE 80 MG (MYLICON) CHEW PO PRN (12:00)
[2018-12-25] MEDS ORDERED: DOCUSATE SODIUM 100 MG (COLACE) CAP PO PRN (12:00)
[2018-12-25] MEDS ORDERED: CHLORASEPTIC LOZENGE MM PRN (12:00)
--- NOTE | 2018-12-25 12:00 | Discharge Inst-Women's Service ---
Discharge Inst-Women's Serv Depart Medication/Instructions New, Converted or Re-Newed RX: RX on Chart Final Diagnosis POD 1 Posterior colporraphy Consults/Follow Up Additional Follow Up: Yes Orders/Referrals Dr. Reynoso in 6 weeks Activity Activity: Activity as Tolerated Driving Instructions: No Driving for 1 Week NO SMOKING: NO SMOKING Nothing Inside Vagina: No Douching, No Burtrum, No Tampons Diet Discharge Diet: No Restrictions Symptoms to Report to : Bleeding Excessive, Pain Increased, Fever Over 101 Degrees F, Vaginal Bleeding Increase, Questions/Concerns For Any Problems or Questions: Contact Your Physician Skin/Wound Care Bathing Instructions: ABIEL Trinh DO Dec 25, 2018 12:00
[2018-12-25] MEDS ORDERED: HYDR-34 PO (12:02)
[2018-12-25] MEDS ORDERED: SIME80TA16 PO (12:02)
[2018-12-25] MEDS ORDERED: IBUP-844 PO (12:02)
[2018-12-25] MEDS ORDERED: DOCU100C37 PO (12:02)
[2018-12-25] MEDS ORDERED: LIDOCAINE PF 0.5% 50 ML (XYLOCAINE) VIAL ONE (12:31)
[2018-12-25] MEDS ORDERED: proPOfol 200 MG/20 ML (DIPRIVAN) VIAL IV ONE (12:31)
[2018-12-25] MEDS ORDERED: fentaNYL INJECTION 100 MCG/2 ML AMP ONE (12:32)
[2018-12-25] MEDS ORDERED: MIDAZOLAM 2 MG/2 ML (VERSED) VIAL ONE (12:32)
[2018-12-25] MEDS ORDERED: ONDANSETRON 4 MG/2 ML (SDV) Z0FRAN ONE (12:34)
[2018-12-25] MEDS ORDERED: DEXAMETHASONE 10 MG/ML (DECADRON) 1 ML VIAL ONE ×2 (12:35→12:36)
[2018-12-25] MEDS ORDERED: VASOPRESSIN INJECTION 20 UNIT/ML VIAL ONE (12:37)
[2018-12-25] MEDS ORDERED: NS (IVPB) 100 ML ONE ×2 (12:38→12:39)
[2018-12-25] MEDS ORDERED: ESTROGENS CONJ. CREAM 30 GM (PREMARIN) TUBE ONE (12:38)
[2018-12-25] MEDS ORDERED: morphine INJ 10 MG/ML 1ML (SYR OR VIAL) ONE (13:50)
[2018-12-25] MEDS ORDERED: PROMETHAZINE INJ 25 MG/ML (PHENERGAN) AMP IVP ONE (14:00)
[2018-12-25] MEDS ORDERED: morphine INJ 10 MG/ML 1ML (SYR OR VIAL) IVP ONE (14:00)
[2018-12-25] MEDS ORDERED: MEPERIDINE (DEMEROL) INJ 50 MG/ML IVP ONE (14:00)
[2018-12-25] MEDS ORDERED: SEVOFLURANE (ULTANE) 15 ML INHAL SOLN ONE (14:04)
[2018-12-25] MEDS ORDERED: KETOROLAC 30 MG/ML VIAL ONE (14:05)
[2018-12-25] MEDS: KETOROLAC 30 MG/ML VIAL IV PRN ×2 (14:12→19:53)
[2018-12-25] MEDS: ONDANSETRON 4 MG/2 ML (SDV) Z0FRAN IVP PRN ×2 (14:27→18:15)
--- NOTE | 2018-12-25 14:38 | Anesthesia-General Post-Op ---
General Patient Condition Mental Status/LOC: Same as Preop Cardiovascular: Satisfactory Nausea/Vomiting: Absent Respiratory: Satisfactory Pain: Controlled Complications: Absent Post Op Complications Complications None Follow Up Care/Instructions Patient Instructions None needed. Anesthesia/Patient Condition Patient Condition Patient is doing well, no complaints, stable vital signs, no apparent adverse anesthesia problems. No complications reported per nursing. ASHLYN FISHER CRNA Dec 25, 2018 14:38
[2018-12-25] MEDS: HYDROcodone/APAP 7.5 MG/325 MG (LORTAB, LORCET PLUS) TABLET PO PRN ×2 (16:29→21:00)
[2018-12-25] MEDS: LACTATED RINGERS 1,000 ML IV SCH ×2 (18:21→19:57)
--- NOTE | 2018-12-25 20:31 | OPERATIVE REPORT ---
DATE OF SERVICE: 12/25/2018 PREOPERATIVE DIAGNOSIS: A 63-year-old female with rectocele. POSTOPERATIVE DIAGNOSIS: A 63-year-old female with rectocele. PROCEDURE: Posterior colporrhaphy. SURGEON: Abiel Rainey DO ANESTHESIA: General endotracheal. ESTIMATED BLOOD LOSS: Minimal. URINE OUTPUT: Not recorded. A Banegas catheter was placed at the end of the procedure. FLUIDS: 800 mL lactated Ringer's solution. SPECIMENS SENT: None. INDICATIONS FOR PROCEDURE: A 63-year-old female who is a patient in consultation from [place] Fierro, nurse practitioner for finding of rectocele. In the preoperative consultation, we discussed how this is not life threatening; however, very cumbersome and the patient wished to proceed with more definitive surgical methods and measures. I discussed with the patient posterior colporrhaphy and everything involved with this procedure including the risk and recovery timeframe. After everything was discussed with the patient in detail, consent was obtained in the preoperative area and the patient was taken to the operating room. OPERATIVE REPORT IN DETAIL: The patient was taken in the operating room, general anesthesia was found to be adequate, placed in dorsal lithotomy position, prepped and draped in normal sterile fashion. I began the procedure by evaluating the posterior rectocele. The vaginal wall, which it is identified with all of its margins and marked with Allis clamps. I then infiltrated the submucosa of the entire defect using vasopressin in a concentration of 20 units in 100 mL of normal saline. Once this was done, I also injected the perineal body with the same injection. A total of 60 mL of this concentration was used. Once this was done, I grasped the mucocutaneous junction and made an incision at this point using the knife and took this down to the midline of the perineal body creating a triangle and I then took off the cutaneous tissue using the knife excising it. I then used this as my dissection planes. I undermine down the midline of the rectocele defect using Metzenbaum scissors. Once this was done all the way to the proximal defect margin I then incised all the way down the mucosa as well. This allowed to grasp the lateral size of my incision and bluntly dissect the rectovaginal fascia off the underlying vaginal mucosa. Once this was done bilaterally, I trimmed the excess vaginal mucosa and then began reapproximating the vaginal mucosa and rectovaginal fascia in one layer using 2-0 Vicryl suture in a running locked fashion. I did this all the way to the mucocutaneous junction, at which point I placed two deep crown sutures in the perineal body to reapproximate and reinforce the perineal body. The 3-0 suture was then continued down the perineal body subcutaneously down to the endpoint and then up subcuticularly up to the mucocutaneous junction and this reapproximates the cutaneous skin of the perineal body. Once this was done, all planes of dissection appeared to be hemostatic. I then packed the vagina using Premarin soaked vaginal packing and placed a Banegas catheter using sterile technique. The patient tolerated the procedure well and was taken to the recovery area in stable condition. Lap and sponge counts were correct at the end of the procedure. Instrument counts were correct as well. Job ID: [id number] DocumentID: [id number] Dictated Date: 12/25/2018 17:17:32 Data Warehousing Architect Date: 12/25/2018 20:30:32 Dictated By: ABIEL RAINEY DO
[2018-12-25] MEDS: ONDANSETRON 4 MG/2 ML (SDV) Z0FRAN IV PRN (21:00)
[2018-12-26] MEDS: LACTATED RINGERS 1,000 ML IV SCH (02:09)
[2018-12-26] MEDS: KETOROLAC 30 MG/ML VIAL IV PRN (02:09)
[2018-12-26] MEDS: ONDANSETRON 4 MG/2 ML (SDV) Z0FRAN IV PRN (04:29)
[2018-12-26] MEDS: HYDROcodone/APAP 7.5 MG/325 MG (LORTAB, LORCET PLUS) TABLET PO PRN (04:29)
[2018-12-26 04:30] VITALS: BP 109/65
[2018-12-26] MEDS ORDERED: IBUPROFEN 600 MG (MOTRIN) TAB PO PRN (04:45)
[2018-12-26 08:55] VITALS: BP 103/62
--- NOTE | 2018-12-26 09:31 | NUR ---
Pt is Christian. Resource Director provided prayer and Communion.
--- NOTE | 2018-12-26 10:08 | NUR ---
LINDA SANON demonstrates understanding of discharge instructions and accurately returns instructions upon questioning. Copy of Post-Discharge Instructions and Medication Discharge Instructions given to PATIENT. LINDA SANON is able to manage continuing needs after discharge. Patients belongings returned to PATIENT. Skin dry and intact; no breakdown noted. Patient discharged from [facility]- on 12-26-18 at 1008. LINDA SANON left floor via W/C, accompanied by STAFF.
== END 2018-12-26 10:08 | disposition home or self-care (01) ==
LOC: SDC 09:16 → EDSTATUS 10:00 → WS 15:00 → SDC 12-26 10:08
PROVIDERS: ATTEND Obstetrics & Gynecology
DX: N81.6 Rectocele (principal); I10 Essential (primary) hypertension; E11.9 Type 2 diabetes mellitus without complications; I35.0 Nonrheumatic aortic (valve) stenosis; E03.9 Hypothyroidism, unspecified; J45.909 Unspecified asthma, uncomplicated; K21.9 Gastro-esophageal reflux disease without esophagitis; K44.9 Diaphragmatic hernia without obstruction or gangrene; F41.9 Anxiety disorder, unspecified; F32.9 Major depressive disorder, single episode, unspecified; E66.9 Obesity, unspecified; Z68.36 Body mass index [BMI] 36.0-36.9, adult; Z79.899 Other long term (current) drug therapy
CPT/HCPCS: 36415; 82962; 85025; 86850; 86900; 86901; 87081; 94664

== ENCOUNTER → 2019-01-19 | Outpatient (CLI) | payer BC ==
[~2019-01-19] MED LIST changes: +DOCU100C37 PO; +HYDR-34 PO; +IBUP-844 PO; +SIME80TA16 PO
--- NOTE | 2019-01-20 09:01 | Diagnostic Imaging Report ---
EXAMINATION: Digital mammogram INDICATION: Bilateral screening with 3-D tomosynthesis with CAD. Comparison is made to 01/08/2017 and 11/30/2015. At this time there are no current complaints. The current study was also evaluated with a Computer Aided Detection (CAD) system. FINDINGS: The fibroglandular tissue in both breasts is heterogeneously dense. This does limit the sensitivity of this exam. Overall, there does not appear to have been any significant change when compared to the prior study. No primary or secondary sign of malignancy is noted. IMPRESSION: There is no radiographic evidence for malignancy. ACR BI-RADS Category 1: Negative. Result letter will be mailed to the patient. Note: At least 10% of breast cancer is not imaged by mammography. Dictated by: Dictated on workstation # [id number]
== END ==
LOC: RAD 11:16
PROVIDERS: ATTEND Nurse Practitioner
DX: Z01.419 Encounter for gynecological examination (general) (routine) without abnormal findings (principal); Z12.31 Encounter for screening mammogram for malignant neoplasm of breast
CPT/HCPCS: 77067

== ENCOUNTER → 2019-01-26 | Outpatient (CLI) | payer OTHER ==
--- NOTE | 2019-01-26 10:17 | Diagnostic Imaging Report ---
INDICATION: Degenerative disc disease. Time of exam 9:59 a.m. FINDINGS: AP, lateral and odontoid views of the cervical spine were obtained. There is some straightening and slight reversal of the normal cervical lordotic curvature. Significant degenerative disc disease at the C6-7 level is noted with moderate disc space narrowing as well as marginal osteophyte formation. Slightly lesser degenerative disc disease at C5-6 level is also noted. Prevertebral tissues are within normal limits. Odontoid is intact. No fractures are seen. IMPRESSION: Lower cervical spondylosis. No acute bony abnormality is detected. Dictated by: Dictated on workstation # [id number]
--- NOTE | 2019-01-26 10:18 | Diagnostic Imaging Report ---
INDICATION: Degenerative disc disease. Time of exam 10:01 a.m. FINDINGS: Two views of the lumbar spine were obtained. There is normal lumbar lordotic curvature. Vertebral body heights are maintained. No acute compression fracture is seen. Disc spaces appear to be fairly well preserved. No significant disc space narrowing or marginal osteophyte formation is identified. There are surgical clips in the right upper quadrant. IMPRESSION: No acute bony abnormality is detected. Dictated by: Dictated on workstation # [id number]
== END ==
LOC: RAD 09:32
PROVIDERS: ATTEND Surgery
DX: Z02.71 Encounter for disability determination (principal); M47.812 Spondylosis without myelopathy or radiculopathy, cervical region; M51.36 Other intervertebral disc degeneration, lumbar region
CPT/HCPCS: 72040; 72100

== ENCOUNTER 2019-02-18 19:32 | Outpatient (CLI) | payer BC ==
[~2019-02-18 19:32] MED LIST changes: -DULO60CA58 PO; +DULO60CA59 PO
== END 2019-02-19 06:00 | disposition home or self-care (01) ==
LOC: SLEEP 19:32
PROVIDERS: ATTEND Nurse Practitioner Family
DX: G47.33 Obstructive sleep apnea (adult) (pediatric) (principal); G47.10 Hypersomnia, unspecified; G47.69 Other sleep related movement disorders; G47.00 Insomnia, unspecified; I10 Essential (primary) hypertension; J98.4 Other disorders of lung; K22.2 Esophageal obstruction; J38.3 Other diseases of vocal cords; M50.90 Cervical disc disorder, unspecified, unspecified cervical region; R19.7 Diarrhea, unspecified
CPT/HCPCS: 95810

== ENCOUNTER 2019-03-18 14:52 | Outpatient (CLI) | payer BC ==
[~2019-03-18] VITALS: Ht 162.6 cm; Wt 90.9 kg
[2019-03-18 15:00] VITALS: BP 141/76
[2019-03-18] MEDS ORDERED: LACTATED RINGERS 1,000 ML IV ONE ×2 (15:03→15:30)
[2019-03-18] MEDS ORDERED: FAMOTIDINE 20MG/2ML IV (PEPCID) ONE (15:14)
[2019-03-18] MEDS ORDERED: fentaNYL INJECTION 100 MCG/2 ML AMP ONE (15:14)
[2019-03-18] MEDS ORDERED: DIPHENOXYLATE/ATROPINE 2.5MG/0.025MG (LOMOTIL) TAB PO ONE (15:30)
[2019-03-18] MEDS ORDERED: FAMOTIDINE 20MG/2ML IV (PEPCID) IV ONE (15:30)
[2019-03-18] MEDS ORDERED: fentaNYL INJECTION 100 MCG/2 ML AMP IV ONE (15:30)
[2019-03-18] MEDS ORDERED: DIPHENOXYLATE/ATROPINE 2.5MG/0.025MG (LOMOTIL) TAB PO PRN (15:30)
[2019-03-18] MEDS ORDERED: NS W/KCL 20 MEQ/L 1,000 ML IV SCH (16:30)
[2019-03-18 17:02] LABS: BASOPHILS % (AUTO) 0 % (0-10); EOSINOPHILS # (AUTO) 0.2 10^3/uL (0.0-0.3); EOSINOPHILS % (AUTO) 3 % (0-10); HEMATOCRIT 41 % (35-52); HEMOGLOBIN 13.4 G/DL (11.5-16.0); LYMPHOCYTES # (AUTO) 2.1 X 10^3 (1.0-4.0); LYMPHOCYTES % (AUTO) 30 % (12-44); MEAN CORPUSCULAR HEMOGLOBIN 31 PG (25-34); MEAN CORPUSCULAR HGB CONC 33 G/DL (32-36); MEAN CORPUSCULAR VOLUME 95 FL (80-99); MEAN PLATELET VOLUME 9.5 FL (7.4-10.4); MONOCYTES # (AUTO) 0.7 X 10^3 (0.0-1.0); MONOCYTES % (AUTO) 10 % (0-12); NEUTROPHILS # (AUTO) 3.9 X 10^3 (1.8-7.8); NEUTROPHILS % (AUTO) 56 % (42-75); PLATELET COUNT 413 10^3/uL (130-400); RED CELL DISTRIBUTION WIDTH 14.9 % (10.0-14.5); WHITE BLOOD COUNT 6.9 10^3/uL (4.3-11.0)
[2019-03-18 17:14] LABS: ALANINE AMINOTRANSFERASE 12 U/L (0-55); ALBUMIN 3.6 GM/DL (3.2-4.5); ALKALINE PHOSPHATASE 80 U/L (40-136); BILIRUBIN,TOTAL 0.2 MG/DL (0.1-1.0); BUN/CREATININE RATIO 9; CALCIUM 8.3 MG/DL (8.5-10.1); CARBON DIOXIDE 27 MMOL/L (21-32); CHLORIDE 106 MMOL/L (98-107); CREATININE SERUM 0.77 MG/DL (0.60-1.30); GFR ESTIMATED > 60; GLUCOSE 135 MG/DL (70-105); POTASSIUM 3.4 MMOL/L (3.6-5.0); SODIUM 138 MMOL/L (135-145); TOTAL PROTEIN 6.9 GM/DL (6.4-8.2)
== END 2019-03-18 18:29 | disposition home or self-care (01) ==
LOC: SDC 14:52
PROVIDERS: ATTEND Internal Medicine
DX: E86.0 Dehydration (principal); A08.4 Viral intestinal infection, unspecified
CPT/HCPCS: 36415; 80053; 85025; 96360; 96374; 96375

== ENCOUNTER → 2019-04-20 | Outpatient (CLI) | payer OTHER | LOC: RT 13:19 | PROVIDERS: ATTEND Family Medicine | DX: Z02.71 Encounter for disability determination (principal) ==

== ENCOUNTER → 2019-07-20 | Outpatient (CLI) | payer BC, OTHER ==
--- NOTE | 2019-07-20 13:03 | Diagnostic Imaging Report ---
INDICATION: Bilateral knee pain. AP, oblique, and lateral views of the knees are obtained. No fracture or acute bone abnormality is seen. Joint spaces appear unremarkable. There is no definite joint effusion. IMPRESSION: Negative bilateral knees. Dictated by: Dictated on workstation # [id number]
--- NOTE | 2019-07-20 13:10 | Diagnostic Imaging Report ---
INDICATION: Chronic pelvic pain and hip pain. TIME OF EXAMINATION: 10:21 AM. TECHNIQUE: An AP view of the pelvis and multiple views of each hip were obtained. FINDINGS: The femoroacetabular alignment is normal bilaterally. The hip joint spaces are fairly well maintained. The femoral heads and necks are intact. No fractures are seen. The rami are intact. The SI joints and symphysis are non-widened. IMPRESSION: No acute bony abnormality is detected. Dictated by: Dictated on workstation # [id number]
== END ==
LOC: RAD 09:57
PROVIDERS: ATTEND Internal Medicine
DX: G89.29 Other chronic pain (principal); R10.2 Pelvic and perineal pain; M25.551 Pain in right hip; M25.552 Pain in left hip; M25.561 Pain in right knee; M25.562 Pain in left knee
CPT/HCPCS: 73523

== ENCOUNTER → 2019-07-27 | Outpatient (CLI) | payer BC, OTHER ==
--- NOTE | 2019-07-27 14:05 | Diagnostic Imaging Report ---
PROCEDURE: MR imaging cervical spine without contrast. TECHNIQUE: Multiplanar, multisequence MR imaging of the cervical spine was performed without contrast. INDICATION: Chronic neck pain. Patient has had prior cervical spine surgery. COMPARISON: Correlation is made with prior MRI of the cervical spine from 06/18/2013. FINDINGS: There is straightening of the normal cervical lordotic curvature. Marrow signal intensity is unremarkable apart from some reactive endplate changes at the C6-C7 level. No geographic marrow lesion is seen. There is some generalized disc desiccation compatible with degenerative disc disease. Cervical cord demonstrates homogeneous signal intensity and normal morphology. Craniocervical junction is unremarkable. C2-C3: Central canal and neural foramina are widely patent. C3-C4: Central canal and neural foramina appear widely patent. C4-C5: Broad-based disc/osteophyte complex indents the ventral thecal sac. There is mild narrowing of the central canal. This is similar to prior exam. Neural foramina appear patent. C5-C6: Broad-based disc/osteophyte complex flattens the ventral thecal sac and produces mild narrowing of the canal. There is mild narrowing of the neural foramina bilaterally. C6-C7: Broad-based disc/osteophyte complex indents the ventral thecal sac. There is mild narrowing of the canal. No significant neural foraminal stenosis is seen. C7-T1: No significant central canal or neural foraminal narrowing is seen. Paraspinous tissues are unremarkable. IMPRESSION: Multilevel cervical spondylosis with multilevel central canal and neural foraminal narrowing described level by level above. Overall appearance is very similar to examination from 2013. Dictated by: Dictated on workstation # [id number]
== END ==
LOC: RAD 12:43
PROVIDERS: ATTEND Nurse Practitioner Family
DX: M47.22 Other spondylosis with radiculopathy, cervical region (principal); M25.551 Pain in right hip
CPT/HCPCS: 72141

== ENCOUNTER → 2019-08-24 | Outpatient (CLI) | payer BC ==
[~2019-08-24] MED LIST changes: +KETOROLAC 30 MG/ML VIAL IV ONE; +LACTATED RINGERS 1,000 ML IV SCH; +ONDANSETRON 4 MG/2 ML (SDV) Z0FRAN IV ONE; +cefTRIAXone 1,000 MG/SWFI 10 ML IV PUSH IV ONE; +methylPREDNISolone 125 MG (Solu-MEDROL) VIAL IV ONE
[2019-08-24 10:24] LABS: HEMOGLOBIN 13.2 G/DL (11.5-16.0); MEAN PLATELET VOLUME 8.6 FL (7.4-10.4); RED CELL DISTRIBUTION WIDTH 14.7 % (10.0-14.5); WHITE BLOOD COUNT 14.1 10^3/uL (4.3-11.0)
[2019-08-24 10:31] VITALS: BP 128/78
[2019-08-24 10:43] LABS: ALANINE AMINOTRANSFERASE 10 U/L (0-55); ALBUMIN 3.7 GM/DL (3.2-4.5); ALKALINE PHOSPHATASE 90 U/L (40-136); BILIRUBIN,TOTAL 0.5 MG/DL (0.1-1.0); BUN/CREATININE RATIO 10; CARBON DIOXIDE 23 MMOL/L (21-32); CHLORIDE 102 MMOL/L (98-107); GFR ESTIMATED > 60; GLUCOSE 133 MG/DL (70-105); POTASSIUM 3.7 MMOL/L (3.6-5.0); SODIUM 134 MMOL/L (135-145); TOTAL PROTEIN 7.2 GM/DL (6.4-8.2)
[2019-08-24 12:37] VITALS: BP 128/78
== END ==
LOC: SDC 09:46
PROVIDERS: ATTEND Nurse Practitioner Family
DX: E86.0 Dehydration (principal); J39.2 Other diseases of pharynx; R50.9 Fever, unspecified
CPT/HCPCS: 36415; 80053; 85027; 86141; 96361; 96374; 96375

== ENCOUNTER 2019-09-01 11:13 | Outpatient (CLI) | payer BC ==
[~2019-09-01 11:13] MED LIST changes: -KETOROLAC 30 MG/ML VIAL IV ONE; -LACTATED RINGERS 1,000 ML IV SCH; -ONDANSETRON 4 MG/2 ML (SDV) Z0FRAN IV ONE; -cefTRIAXone 1,000 MG/SWFI 10 ML IV PUSH IV ONE; -methylPREDNISolone 125 MG (Solu-MEDROL) VIAL IV ONE
[2019-09-01] MEDS ORDERED: LACTATED RINGERS 2,000 ML IV ONE (11:25)
[2019-09-01] MEDS ORDERED: WATER (STERILE) FOR INJECTION 10 ML ONE (11:25)
[2019-09-01] MEDS ORDERED: cefTRIAXone 1,000 MG IV (ROCEPHIN) VIAL ONE (11:25)
[2019-09-01] MEDS ORDERED: ONDANSETRON 4 MG/2 ML (SDV) Z0FRAN ONE (11:25)
[2019-09-01 11:40] VITALS: BP 134/73
[2019-09-01] MEDS ORDERED: LACTATED RINGERS 1,000 ML IV SCH (11:45)
[2019-09-01] MEDS ORDERED: cefTRIAXone 1,000 MG/SWFI 10 ML IV PUSH IV ONE ×2 (11:45)
[2019-09-01] MEDS ORDERED: ONDANSETRON 4 MG/2 ML (SDV) Z0FRAN IV PRN (11:45)
== END 2019-09-01 11:20 | disposition home or self-care (01) ==
LOC: SDC 11:13
PROVIDERS: ATTEND Nurse Practitioner Family
DX: E86.0 Dehydration (principal)
CPT/HCPCS: 96360; 96361; 96375

== ENCOUNTER 2019-09-04 12:45 | Outpatient (RCR) | payer BC ==
[2019-09-03] MEDS: LACTATED RINGERS 2,000 ML IV SCH ×2 (15:36→17:22)
[2019-09-03] MEDS: cefTRIAXone 1,000 MG/SWFI 10 ML IV PUSH IV SCH ×2 (15:37)
[2019-09-03] MEDS: ONDANSETRON 4 MG/2 ML (SDV) Z0FRAN IV SCH (15:38)
[2019-09-03 15:46] VITALS: BP 139/79
[~2019-09-04] VITALS: Ht 157.5 cm; Wt 85.5 kg
[2019-09-04 12:45] VITALS: BP 139/79
[~2019-09-04 12:45] MED LIST changes: +methylPREDNISolone 125 MG (Solu-MEDROL) VIAL IV SCH
[2019-09-04] MEDS: LACTATED RINGERS 2,000 ML IV SCH ×2 (13:02→14:09)
[2019-09-04] MEDS: cefTRIAXone 1,000 MG/SWFI 10 ML IV PUSH IV SCH ×2 (13:16)
[2019-09-04] MEDS: ONDANSETRON 4 MG/2 ML (SDV) Z0FRAN IV SCH (13:16)
== END 2019-09-04 15:15 | disposition home or self-care (01) ==
LOC: SDC 12:45
PROVIDERS: ATTEND Nurse Practitioner Family
DX: J02.0 Streptococcal pharyngitis (principal); E86.0 Dehydration; J39.2 Other diseases of pharynx
CPT/HCPCS: 96360; 96361; 96374; 96375

== ENCOUNTER → 2019-09-15 | Outpatient (CLI) | payer BC ==
[~2019-09-15] MED LIST changes: -methylPREDNISolone 125 MG (Solu-MEDROL) VIAL IV SCH
--- NOTE | 2019-09-15 12:42 | Diagnostic Imaging Report ---
PA and lateral chest at 12:13. Indication: Cough The heart size is within normal limits and stable when compared to 08/12/2018. The lungs are clear. There is no evidence for failure, pneumonia or for pleural effusion. The perihilar markings are somewhat prominent but no different than on the prior exam. The mediastinum is not widened. The osseous structures are intact. Impression: 1. There is no evidence for an acute cardiopulmonary abnormality. 2. The results were called to Dr. Eugene Chávez. Dictated by: Dictated on workstation # [id number]
== END ==
LOC: RAD 11:59
PROVIDERS: ATTEND Internal Medicine
DX: J15.7 Pneumonia due to Mycoplasma pneumoniae (principal); R09.02 Hypoxemia; B37.3 Candidiasis of vulva and vagina
CPT/HCPCS: 71046

== ENCOUNTER → 2019-12-08 | Outpatient (CLI) | payer BC ==
[~2019-12-08] MED LIST changes: +CATHETER FLUSH 10 ML SYR IV PRN; +HOLD METFORMIN - RECEIVED CONTRAST 20 ML VIAL IV SCH; +IOHEXOL 350 MG/ML 100 ML (OMNIPAQUE 350) VIAL IV ONE; +NS 100 ML (IVPB) BAG IV ONE
--- NOTE | 2019-12-08 13:00 | Diagnostic Imaging Report ---
PROCEDURE: CT neck soft tissue and chest with contrast. TECHNIQUE: Helically acquired axial images were obtained through the neck and chest after the administration of intravenous contrast. All CT scans use one or more of the following dose optimizing techniques: automated exposure control, MA and/or KvP adjustment based on a patient size and exam type, or iterative reconstruction. INDICATION: Evaluate parathyroid gland. Elevated parathyroid hormone. Shortness of breath. Cough. COMPARISON: CT neck of 12/01/2018. FINDINGS: CT NECK: A nodular focus is seen in the right tracheoesophageal groove measuring 1.2 x 0.6 cm. This is stable in size compared to the prior exam. The thyroid has an unremarkable appearance. No thyroid nodules are identified. Mildly prominent cervical lymph nodes are seen bilaterally, similar to the prior exam. The parotid and submandibular glands are unremarkable. The posterior nasopharynx and oropharynx demonstrate appropriate symmetry. There is no displacement of the parapharyngeal fat planes. There is no abnormal process evident within the prevertebral or retropharyngeal space. There is no evidence of abnormal thickening of the epiglottis or aryepiglottic folds. The vocal folds appear symmetric. The vascular structures the neck demonstrate no evidence of high-grade stenosis on this nondedicated exam. The visualized intracranial contents demonstrate no evidence of pathologic intracranial enhancement or intracranial mass effect. Visualized orbital contents are unremarkable. The visualized paranasal sinuses are clear. The mastoids and middle ears are clear. No acute osseous abnormality in the cervical spine. Degenerative changes are seen in the cervical spine, greatest at C6-C7. CT CHEST: The heart size is normal. No pericardial effusion is seen. The thoracic aorta is unremarkable without evidence of aneurysm or dissection. No mediastinal hematomas are present. Mildly prominent mediastinal lymph nodes are again seen, stable compared to the prior exam. Hazy opacities are seen in the medial aspect of the right lower lobe. A nodule seen in the right perihilar region measures 0.5 cm. No focal consolidations or pulmonary masses. No central endobronchial obstructing lesions. The osseous structures of the chest demonstrate no acute abnormalities. The upper abdomen is unremarkable without acute abnormality. IMPRESSION: 1. Nodular focus in the right tracheoesophageal groove measuring 1.2 x 0.6 m. This may represent a lymph node versus parathyroid tissue. Consider parathyroid Nuclear Medicine scan to further evaluate. 2. Stable mildly prominent lymph nodes in the neck and mediastinum. No pathologically enlarged lymphadenopathy in the neck or chest. 3. Small focus of hazy opacities in the medial aspect of the right lower lobe. This may represent inflammatory or infectious etiology. No focal consolidations or pulmonary masses. 4. Soft tissue nodule in the right perihilar region measuring 0.5 cm. Recommend followup chest CT in 12 months to document stability. Dictated by: Dictated on workstation # [id number]
== END ==
LOC: RAD 10:36
PROVIDERS: ATTEND Nurse Practitioner Family
DX: J98.59 Other diseases of mediastinum, not elsewhere classified (principal); M50.121 Cervical disc disorder at C4-C5 level with radiculopathy; R79.89 Other specified abnormal findings of blood chemistry; R06.02 Shortness of breath; R05 Cough
CPT/HCPCS: 70491; 71260

== ENCOUNTER → 2019-12-15 | Outpatient (CLI) | payer BC ==
[~2019-12-15] MED LIST changes: -CATHETER FLUSH 10 ML SYR IV PRN; -HOLD METFORMIN - RECEIVED CONTRAST 20 ML VIAL IV SCH; -IOHEXOL 350 MG/ML 100 ML (OMNIPAQUE 350) VIAL IV ONE; -NS 100 ML (IVPB) BAG IV ONE
--- NOTE | 2019-12-15 15:54 | Diagnostic Imaging Report ---
INDICATION: Hyperparathyroidism. TECHNIQUE: The patient was administered 20.8 mCi of technetium 99M sestamibi and imaging over the neck and upper chest was performed. COMPARISON: Correlation is made with the prior parathyroid study from 03/04/2018. FINDINGS: There is physiologic activity within the salivary glands. No abnormal focus of tracer is identified to suggest parathyroid adenoma. No uptake within the mediastinum is identified. IMPRESSION: No evidence of parathyroid adenoma. Dictated by: Dictated on workstation # [id number]
== END ==
LOC: CARD 10:37
PROVIDERS: ATTEND Nurse Practitioner Family
DX: E21.3 Hyperparathyroidism, unspecified (principal); R79.89 Other specified abnormal findings of blood chemistry
CPT/HCPCS: 78072; A9500

== ENCOUNTER → 2020-01-18 | Outpatient (CLI) | payer BC ==
[~2020-01-18] VITALS: Ht 163 cm; Wt 95.0 kg
[~2020-01-18] MED LIST changes: +CATHETER FLUSH 10 ML SYR IV PRN; +REGADENOSON 0.4 MG/5 ML SYR (LEXISCAN) IV ONE
[2020-01-18 08:06] VITALS: BP 139/76
--- NOTE | 2020-01-18 14:19 | Cardiology Stress Test Report ---
Stress Test Report Type of NM Stress Test: Test Type: LEXISCAN 0.4MG/5ML Date of Procedure/Referring: Date of Procedure: Jan 18, 2020 PCP Mahsa Chávez Dnp Admitting Physician Eugene Chávez DO Indications: Palpitations Baseline Heart Rate: 70 Baseline Blood Pressure: Blood Pressure Systolic: 139 Blood Pressure Diastolic: 76 Baseline EKG: Baseline EKG: sinus rhythm Summary & Conclusion: Summary: The patient was brought to the stress lab after informed consent was taken. Stress test was performed according to the Lexiscan protocol. 0.4 mg of IV Lexiscan was given. Please see Dr. Chávez's report for details. Baseline EKG showed sinus rhythm at 70 BPM. Initial blood pressure was 139/76 mmHg. Maximum heart rate was 95 bpm and blood pressure 146/85 mmHg. Patient did not have any chest pain, arrhythmias or ST segment changes during the stress test. 10.65 mCi of Myoview were given for rest imaging and 32.6 mCi of Myoview given for stress imaging. Transient ischemic dilatation score 0.99, EF 72 percent. Normal wall motion. Normal myocardial perfusion imaging during rest and stress. Conclusion: Pharmacological stress test was negative for ischemia. Normal LV function with no wall motion abnormalities. Normal myocardial perfusion imaging during rest and stress. Liz GRIMES MD Jan 18, 2020 14:19
== END ==
LOC: CARD 06:27
PROVIDERS: ATTEND Nurse Practitioner Family
DX: R00.2 Palpitations (principal); R07.89 Other chest pain
CPT/HCPCS: 78452; 93017; A9502

== ENCOUNTER → 2020-04-07 | Outpatient (CLI) | payer BC ==
[~2020-04-07] MED LIST changes: -CATHETER FLUSH 10 ML SYR IV PRN; -REGADENOSON 0.4 MG/5 ML SYR (LEXISCAN) IV ONE
--- NOTE | 2020-04-08 09:22 | Diagnostic Imaging Report ---
INDICATION: Routine screening. Comparison is made with prior 01/19/2019 and 01/17/2018. 2-D and 3-D bilateral screening mammography was performed with CAD. Scattered fibroglandular densities are identified bilaterally. The parenchymal pattern is stable. No mass or malignant appearing microcalcifications are seen. There are benign calcifications bilaterally. Axillae are unremarkable. IMPRESSION: BI-RADS Category 2 No mammographic features suspicious for malignancy are identified. ACR BI-RADS Category 2: Benign findings. Result letter will be mailed to the patient. Note: At least 10% of breast cancer is not imaged by mammography. Dictated by: Dictated on workstation # [id number]
== END ==
LOC: RAD 15:15
PROVIDERS: ATTEND Nurse Practitioner Family
DX: Z12.31 Encounter for screening mammogram for malignant neoplasm of breast (principal); G43.819 Other migraine, intractable, without status migrainosus; A04.8 Other specified bacterial intestinal infections; K21.9 Gastro-esophageal reflux disease without esophagitis
CPT/HCPCS: 77063; 77067

== ENCOUNTER → 2020-10-17 | Outpatient (CLI) | payer BC ==
[~2020-10-17] MED LIST changes: +BUTA-235 PO; -BUTA1TAB9 PO
--- NOTE | 2020-10-17 13:46 | Diagnostic Imaging Report ---
INDICATION: Upper abdominal pain x5 days.. TECHNIQUE: Supine and upright view of the abdomen 12:43 PM CORRELATION STUDY: None FINDINGS: Multiple surgical clips particularly within the upper abdomen. There is some gas and stool in the colon. There is no finding to suggest a high degree bowel obstruction. There are a few asymmetrically gas distended small bowel within the left mid abdomen. Suggested some wall thickening could be reflective of a component of enteritis. No definitive pathologic intra-abdominal calcifications. Very mild S-type scoliotic curvature of the lumbar spine. IMPRESSION: 1. No evidence for underlying bowel obstruction. 2. Questioned asymmetric a thick-walled gas distended small bowel left mid abdomen could be reflective of a nonspecific enteritis. Dictated by: Dictated on workstation # [id number]
== END ==
LOC: RAD 12:32
DX: R10.13 Epigastric pain (principal)
CPT/HCPCS: 74019

== ENCOUNTER → 2020-10-20 | Outpatient (CLI) | payer BC ==
--- NOTE | 2020-10-20 08:33 | Diagnostic Imaging Report ---
EXAMINATION: US Abdomen complete. TECHNIQUE: Multiple real-time grayscale images were obtained over the right upper quadrant in various projections. HISTORY: Abdominal pain COMPARISON: None available. FINDINGS: The liver is normal in size. The liver is normal in echogenicity. No focal lesions are seen. The portal vein is patent with hepatopedal flow. Gallbladder is surgically absent. Common duct measures 7 mm. There is no biliary ductal dilation. Pancreas is not well seen. There is an anechoic focus adjacent to the stomach measuring 2.9 x 2.4 x 1.6 cm, it is in an unusual location for a loop of bowel and does not have normal bile signature. The right kidney is normal without hydronephrosis. The left kidney is normal without hydronephrosis. The aorta and inferior vena cava are normal. The spleen is normal. No ascites is seen. IMPRESSION: 1. Indeterminate anechoic focus adjacent to the stomach. It does not have a normal bowel signature on ultrasound, CT of the abdomen and pelvis with intravenous contrast is recommended for further evaluation. Dictated by: Dictated on workstation # [id number]
== END ==
LOC: RAD 07:30
PROVIDERS: ATTEND Nurse Practitioner Family
DX: R10.33 Periumbilical pain (principal); R10.13 Epigastric pain; Z90.49 Acquired absence of other specified parts of digestive tract
CPT/HCPCS: 76700

== ENCOUNTER → 2020-10-20 | Outpatient (CLI) | payer BC ==
[~2020-10-20] MED LIST changes: +CATHETER FLUSH 10 ML SYR IV PRN; +HOLD METFORMIN - RECEIVED CONTRAST 20 ML VIAL IV SCH; +IOHEXOL 350 MG/ML 100 ML (OMNIPAQUE 350) VIAL IV ONE; +NS 100 ML (IVPB) BAG IV ONE
--- NOTE | 2020-10-20 10:46 | Diagnostic Imaging Report ---
PROCEDURE: CT abdomen and pelvis with contrast. TECHNIQUE: Multiple contiguous axial images were obtained through the abdomen and pelvis after administration of intravenous contrast. Auto Exposure Controls were utilized during the CT exam to meet ALARA standards for radiation dose reduction. All CT scans use one or more of the following dose optimizing techniques: automated exposure control, MA and/or KvP adjustment based on patient size and exam type or iterative reconstruction. INDICATION: Abnormal ultrasound of the abdomen performed earlier today. COMPARISON: Correlation is made with the abdominal ultrasound from earlier this same day. FINDINGS: The lung bases are clear. No discrete liver mass is detected. The gallbladder is surgically absent. There is no biliary ductal dilatation. The pancreas and spleen are unremarkable. There are postop changes from gastric bypass surgery. The post surgical changes may account for the findings noted on ultrasound. No discrete mass is identified within or adjacent to the stomach. No adrenal mass is identified. The kidneys are unremarkable. The aorta is nonaneurysmal. No central retroperitoneal or mesenteric lymphadenopathy is seen. The bowel loops appear to be of normal caliber. There is no obstruction. There is no free fluid or fluid collection. The bladder is decompressed. No pelvic lymphadenopathy is seen. IMPRESSION: There are postop changes from gastric bypass surgery. No discrete mass is identified to account for the ultrasound abnormality. There is no abdominal or pelvic lymphadenopathy identified. Dictated by: Dictated on workstation # [id number]
== END ==
LOC: RAD 09:45
PROVIDERS: ATTEND Nurse Practitioner Family
DX: R93.5 Abnormal findings on diagnostic imaging of other abdominal regions, including retroperitoneum (principal); Z98.84 Bariatric surgery status
CPT/HCPCS: 74177

== ENCOUNTER 2021-01-18 11:49 | Outpatient (CLI) | payer BC ==
[~2021-01-18] VITALS: Ht 150 cm; Wt 95.0 kg
[~2021-01-18 11:49] MED LIST changes: -CATHETER FLUSH 10 ML SYR IV PRN; -HOLD METFORMIN - RECEIVED CONTRAST 20 ML VIAL IV SCH; -IOHEXOL 350 MG/ML 100 ML (OMNIPAQUE 350) VIAL IV ONE; -NS 100 ML (IVPB) BAG IV ONE
[2021-01-18 12:00] VITALS: BP 121/77
[2021-01-18] MEDS ORDERED: LACTATED RINGERS 1,000 ML IV ONE (12:15)
[2021-01-18] MEDS ORDERED: ONDANSETRON 4 MG/2 ML (SDV) Z0FRAN IV PRN (12:15)
== END 2021-01-18 14:00 ==
LOC: SDC 11:49
PROVIDERS: ATTEND Nurse Practitioner Family
DX: K90.9 Intestinal malabsorption, unspecified (principal); E86.0 Dehydration
CPT/HCPCS: 96360; 96374

== ENCOUNTER → 2021-01-25 | Outpatient (CLI) | payer BC ==
--- NOTE | 2021-01-25 10:29 | Diagnostic Imaging Report ---
CLINICAL INDICATION: Patient with right flank pain. EXAM: Complete abdominal ultrasound. COMPARISON: Complete abdominal ultrasound dated 10/20/2020. CT scan of the abdomen and pelvis with contrast dated 10/20/2020. FINDINGS: A portion of the pancreatic tail is obscured by overlying bowel gas; otherwise, the pancreas is unremarkable as visualized. The abdominal aorta and IVC are unremarkable as visualized. There is no aneurysmal dilation of the abdominal aorta. The liver has normal echogenicity and echotexture. The liver surface is smooth. The liver measures 17 cm. The main portal vein demonstrates hepatopetal flow. There is no intrahepatic ductal dilation. The common bile duct is not measured as the area is obscured by bowel gas. The gallbladder has been surgically resected. The right and left kidneys show no mass or hydronephrosis. The right kidney measures 9.7 cm in craniocaudal dimension and the left kidney measures 8.9 cm in craniocaudal dimension. The left kidney is partially obscured. The spleen has normal echogenicity and a smooth liver surface. The spleen measures 9.0 cm. There is no abdominal ascites. IMPRESSION: 1: Limited exam due to patient body habitus and overlying bowel gas. There is no ultrasound evidence of an acute abdominal process. 2: Both kidneys are grossly unremarkable with no hydronephrosis or mass. If there is concern for renal stone, a CT scan without contrast would better evaluate. 3: The gallbladder is surgically absent. Dictated by: Dictated on workstation # [id number]
== END ==
LOC: RAD 07:46
PROVIDERS: ATTEND Nurse Practitioner Family
DX: R10.9 Unspecified abdominal pain (principal); Z90.49 Acquired absence of other specified parts of digestive tract
CPT/HCPCS: 76700

== ENCOUNTER → 2021-01-25 | Outpatient (CLI) | payer BC ==
[~2021-01-25] MED LIST changes: +CATHETER FLUSH 10 ML SYR IV PRN; +ONDANSETRON 4 MG/2 ML (SDV) Z0FRAN IVP PRN
[2021-01-25 11:15] VITALS: BP 138/85
[2021-01-25] MEDS: LACTATED RINGERS 2,000 ML IV SCH ×2 (11:20→11:50)
== END ==
LOC: SDC 11:00
PROVIDERS: ATTEND Nurse Practitioner Family
DX: E86.0 Dehydration (principal)
CPT/HCPCS: 96360; 96361; 96374

== ENCOUNTER → 2021-01-27 | Outpatient (CLI) | payer BC ==
[~2021-01-27] MED LIST changes: -CATHETER FLUSH 10 ML SYR IV PRN; -ONDANSETRON 4 MG/2 ML (SDV) Z0FRAN IVP PRN
--- NOTE | 2021-01-27 13:29 | Diagnostic Imaging Report ---
PROCEDURE: CT chest, abdomen, and pelvis without contrast. TECHNIQUE: Multiple contiguous axial images were obtained through the chest, abdomen, and pelvis without the use of intravenous contrast. Auto Exposure Controls were utilized during the CT exam to meet ALARA standards for radiation dose reduction. INDICATION: Abdominal pain, right flank pain with nausea. Patient also has a history of abnormal prior chest x-ray. CT CHEST: No axillary lymphadenopathy is identified. No mediastinal or hilar lymphadenopathy is detected. No pericardial or pleural fluid is identified. No pulmonary infiltrates, nodules or masses are detected. IMPRESSION: 1. Unremarkable noncontrast CT of the chest. CT ABDOMEN PELVIS: Correlation is made with prior CT from 10/20/2020. The liver is unremarkable. The gallbladder is surgically absent. No biliary ductal dilatation is seen. The pancreas and spleen are unremarkable. There are postoperative changes from gastric bypass surgery. No adrenal mass is identified. The kidneys are unremarkable. Aorta is nonaneurysmal. Small and large bowel loops appear to be normal caliber. Moderate stool in the colon is noted. There is no obstruction. No free fluid or fluid collection is identified. Bladder is decompressed. The uterus appears to be surgically absent. Bony structures are nonacute. No definite abdominal or pelvic lymphadenopathy is detected. IMPRESSION: 1. Unremarkable noncontrast CT of the abdomen and pelvis apart from moderate stool in the colon. No acute feature is detected. Dictated by: Dictated on workstation # [id number]
--- NOTE | 2021-01-27 16:51 | Diagnostic Imaging Report ---
PROCEDURE: CT neck soft tissue without contrast. TECHNIQUE: Multiple contiguous axial images were obtained through the neck without the use of intravenous contrast. Auto Exposure Controls were utilized during the CT exam to meet ALARA standards for radiation dose reduction. INDICATION: Parathyroid tumor. COMPARISON: CT neck from 12/08/2019 and parathyroid scan from 12/15/2019. FINDINGS: There are surgical changes around the thyroid likely from parathyroidectomy. Thyroid is normal in appearance. No soft tissue nodules have developed around the thyroid gland. No cervical lymphadenopathy. The airway is widely patent. Epiglottis is normal in appearance. The parotid and submandibular glands are normal in appearance. There is degenerative straightening cervical spine. No high-grade spinal stenosis. No worrisome focal osseous lesions. IMPRESSION: 1. No soft tissue mass to suggest parathyroid adenoma by CT. 2. No cervical lymphadenopathy. Dictated by: Dictated on workstation # [id number]
== END ==
LOC: RAD 12:15
PROVIDERS: ATTEND Nurse Practitioner Family
DX: D35.1 Benign neoplasm of parathyroid gland (principal); N30.00 Acute cystitis without hematuria; R91.8 Other nonspecific abnormal finding of lung field
CPT/HCPCS: 70490; 71250; 74176

== ENCOUNTER 2021-06-17 10:52 | Emergency (ER) | payer BC, MEDICARE ==
[~2021-06-17] VITALS: Ht 162.6 cm; Wt 77.6 kg
[~2021-06-17 10:52] MED LIST changes: +CYCL10TA25 PO; -CYCL10TA9 PO
[2021-06-17] MEDS ORDERED: ONDANSETRON 4 MG/2 ML (SDV) Z0FRAN IVP ONE (11:00)
[2021-06-17] MEDS ORDERED: D5 NS 1000 ML IV SOLUTION 1,000 ML IV ONE (11:00)
[2021-06-17] MEDS ORDERED: D5 LR IV SOLUTION 2,000 ML IV ONE (11:10)
[2021-06-17 11:13] LABS: BILIRUBIN,URINE NEGATIVE (NEGATIVE); CLARITY,URINE CLEAR; COLOR,URINE YELLOW; GLUCOSE, URINE (UA) NEGATIVE (NEGATIVE); KETONES,URINE NEGATIVE (NEGATIVE); LEUKOCYTE ESTERASE ,URINE NEGATIVE (NEGATIVE); NITRITE,URINE NEGATIVE (NEGATIVE); PROTEIN,URINE NEGATIVE (NEGATIVE); RBC,URINE 0-2 /HPF
[2021-06-17 11:14] LABS: BACTERIA,URINE TRACE /HPF; YEAST,URINE MODERATE /HPF
[2021-06-17] MEDS ORDERED: methylPREDNISolone 40 MG/ML (Solu-MEDROL) VIAL IV ONE (11:15)
--- NOTE | 2021-06-17 11:20 | ED GI ---
General Stated Complaint: SORE THROAT,CONGESTION,COUGH Source of Information: Patient Exam Limitations: No Limitations History of Present Illness Date Seen by Provider: Jun 17, 2021 Time Seen by Provider: 11:00 Initial Comments 65-year-old female with past medical history of thyroid disease, COPD, and relatively recent gastric bypass surgery coming in due to cough, shortness of air, and as of last night nonbloody nonbilious vomiting and nonbloody diarrhea. Was initially sick just over a week ago. Started azithromycin last Saturday. Saw her primary again on Saturday and concern for pneumonia so was started on cefdinir as well with steroids. She was taking prednisone 20 mg. Continued to have fevers and was worsening so on and Saturday when he got ceftriaxone shots both days. [place] better as far as a fever standpoint, cough remain the same. Last night with the dry heaving and diarrhea, feels like she is dehydrated. That she has had gastric bypass she has a hard time keeping a lot of fluids down and really struggles with that. Has had 2 negative COVID tests this week. Is otherwise denying any other acute complaints. Allergies and Home Medications Allergies Coded Allergies: metoclopramide (Unverified Allergy, Mild, 05/19/08) codeine (Unverified Allergy, Unknown, 12/25/18) Patient Home Medication List Home Medication List Reviewed: Yes Albuterol Sulfate (Proair Hfa) 1 Puff Puff, 2 PUFF IH Q4H PRN for SHORTNESS OF BREATH, (Reported) Entered as Reported by: NEEL CARRILLO on 12/18/18 1138 Buspirone HCl (Buspirone HCl) 5 Mg Tablet, 5 MG PO DAILY, (Reported) Entered as Reported by: NEEL CARRILLO on 12/18/18 1135 Butalb/Acetaminophen/Caffeine (Ctkscf-Pjlptrfe-Gupn 50-325-40) 1 Each Tablet, 1 EACH PO PRN, (Reported) Entered as Reported by: NEEL CARRILLO on 12/18/18 1135 Carvedilol (Carvedilol) 12.5 Mg Tablet, 12.5 MG PO BID, (Reported) Entered as Reported by: NEEL CARRILLO on 12/18/18 1135 Cyclobenzaprine HCl (Cyclobenzaprine HCl) 10 Mg Tablet, 10 MG PO PRN, (Reported) Entered as Reported by: NEEL CARRILLO on 12/18/18 113 Docusate Sodium (Docusate Sodium) 100 Mg Capsule, 100 MG PO BID PRN for CONSTIPATION-1ST LINE Prescribed by: ABIEL RAINEY on 12/25/18 120 Duloxetine HCl (Duloxetine HCl) 60 Mg Capsule.dr, 60 MG PO DAILY, (Reported) Entered as Reported by: NEEL CARRILLO on 12/18/18 113 Estradiol (Estradiol Tablet) 1 Mg Tablet, 1 MG PO DAILY, (Reported) Entered as Reported by: SUKH CRYSTAL on 07/26/17917 Hydrocodone Bit/Acetaminophen (Lortab 7.5 Mg Tablet) 1 Ea Tablet, 2 EA PO Q6H PRN for Pain-See Instructions Prescribed by: ABIEL RAINEY on 12/25/18 120 Ibuprofen (Ibu) 600 Mg Tablet, 600 MG PO Q6H PRN for PAIN-MODERATE Prescribed by: ABIEL RAINEY on 12/25/18 120 Levothyroxine Sodium (Levothyroxine Sodium) 88 Mcg Tablet, 88 MCG PO DAILY, (Reported) Entered as Reported by: SUKH CRYSTAL on 07/26/17917 Lorazepam (Lorazepam) 1 Mg Tablet, 1 MG PO BID, (Reported) Entered as Reported by: NEEL CARRILLO on 12/18/18 113 Pantoprazole Sodium (Protonix) 40 Mg Tablet.dr, 40 MG PO BID, (Reported) Entered as Reported by: SUKH CRYSTAL on 07/26/17917 Semaglutide (Ozempic) 0.25 Mg/0.2 Ml Pen.injctr, 0.25 MG SQ WEEK, (Reported) Entered as Reported by: NEEL CARRILLO on 12/18/18 113 Simethicone (Simethicone) 80 Mg Tab.chew, 40 MG PO TID PRN for INDIGESTION 2ND LINE Prescribed by: ABIEL RAINEY on 12/25/18 120 Zolpidem Tartrate (Ambien) 5 Mg Tablet, 5 MG PO HS, (Reported) Entered as Reported by: NEEL CARRILLO on 12/18/18 1135 Review of Systems Review of Systems Constitutional: chills, fever EENTM: No Blurred Vision Respiratory: Cough, Shortness of Air Cardiovascular: Denies Chest Pain Gastrointestinal: Denies Abdominal Pain; Diarrhea, Nausea Genitourinary: No Symptoms Reported Musculoskeletal: no symptoms reported Skin: no symptoms reported Psychiatric/Neurological: No Symptoms Reported Endocrine: No Symptoms Reported Hematologic/Lymphatic: No Symptoms Reported All Other Systems Reviewed Negative Unless Noted: Yes Past [place]-Uhdnng-Ivdogp Hx Patient Social History Tobacco Use?: No Substance use?: No Seasonal Allergies Seasonal Allergies: No Past Medical History Surgeries: Yes (A&P X2, LAP AB X2, gastric bypass) Bladder Surgery, Gallbladder, Hysterectomy Respiratory: Yes (O2 2L AT NIGHT) Cardiac: Yes (MITRAL VALVE REGURG) Hypertension Neurological: Yes Headaches /Migraines, Neuropathy Reproductive Disorders: No Sexually Transmitted Disease: No HIV/AIDS: No Genitourinary: Yes Kidney Stones Gastrointestinal: Yes Gastroesophageal Reflux, Chronic Diarrhea, Hiatal Hernia Musculoskeletal: Yes Arthritis, Fibromyalgia Endocrine: Yes Hypothyroidsim HEENT: No (READING GLASSES) Loss of Vision: Denies Hearing Impairment: Denies Cancer: No Psychosocial: Yes Anxiety, Depression Integumentary: No Blood Disorders: No Adverse Reaction/Blood Tranf: No (N/A) Physical Exam Vital Signs Vital Signs - First Documented Capillary Refill : Height/Weight/BMI Height: 5'4.00" Weight: 207lbs. 0.0oz. 93.052674of; 35.75 BMI Method:Stated General Appearance: WD/WN, no apparent distress HEENT: PERRL/EOMI, normal ENT inspection, pharynx normal Neck: non-tender, full range of motion, supple, normal inspection Respiratory: chest non-tender, lungs clear, normal breath sounds, no respiratory distress, no accessory muscle use Cardiovascular: regular rate, rhythm, no edema, no murmur Gastrointestinal: normal bowel sounds, non tender, soft Extremities: normal range of motion, non-tender, normal inspection, no pedal edema, no calf tenderness, normal capillary refill Back: normal inspection, no CVA tenderness, no vertebral tenderness Neurologic/Psychiatric: no motor/sensory deficits, alert, normal mood/affect Skin: normal color, warm/dry Lymphatic: no adenopathy Progress/Results/Core Measures Results/Orders Lab Results Laboratory Tests Test 06/17/21 11:04 06/17/21 11:15 Range/Units Urine Color YELLOW Urine Clarity CLEAR Urine pH 6.0 5-9 Urine Specific Erlanger 1.025 H 1.016-1.022 Urine Protein NEGATIVE NEGATIVE Urine Glucose (UA) NEGATIVE NEGATIVE Urine Ketones NEGATIVE NEGATIVE Urine Nitrite NEGATIVE NEGATIVE Urine Bilirubin NEGATIVE NEGATIVE Urine Urobilinogen 0.2 < = 1.0 MG/DL Urine Leukocyte Esterase NEGATIVE NEGATIVE Urine RBC (Auto) TRACE-I H NEGATIVE Urine RBC 0-2 /HPF Urine WBC NONE /HPF Urine Squamous Epithelial Cells 10-25 H /HPF Urine Crystals NONE /LPF Urine Bacteria TRACE /HPF Urine Casts NONE /LPF Urine Mucus MODERATE H /LPF Urine Yeast MODERATE H /HPF Urine Culture Indicated NO White Blood Count 7.2 4.3-11.0 10^3/uL Red Blood Count 4.33 3.80-5.11 10^6/uL Hemoglobin 13.4 11.5-16.0 g/dL Hematocrit 40 35-52 % Mean Corpuscular Volume 92 80-99 fL Mean Corpuscular Hemoglobin 31 25-34 pg Mean Corpuscular Hemoglobin Concent 34 32-36 g/dL Red Cell Distribution Width 14.2 10.0-14.5 % Platelet Count 513 H 130-400 10^3/uL Mean Platelet Volume 8.7 L 9.0-12.2 fL Immature Granulocyte % (Auto) 0 % Neutrophils (%) (Auto) 52 42-75 % Lymphocytes (%) (Auto) 36 12-44 % Monocytes (%) (Auto) 8 0-12 % Eosinophils (%) (Auto) 4 0-10 % Basophils (%) (Auto) 1 0-10 % Neutrophils # (Auto) 3.7 1.8-7.8 X 10^3 Lymphocytes # (Auto) 2.6 1.0-4.0 X 10^3 Monocytes # (Auto) 0.6 0.0-1.0 X 10^3 Eosinophils # (Auto) 0.3 0.0-0.3 10^3/uL Basophils # (Auto) 0.1 0.0-0.1 10^3/uL Immature Granulocyte # (Auto) 0.0 0.0-0.1 10^3/uL Sodium Level 140 135-145 MMOL/L Potassium Level 3.5 L 3.6-5.0 MMOL/L Chloride Level 103 98-107 MMOL/L Carbon Dioxide Level 20 L 21-32 MMOL/L Anion Gap 17 H 5-14 MMOL/L Blood Urea Nitrogen 10 7-18 MG/DL Creatinine 0.67 0.60-1.30 MG/DL Estimat Glomerular Filtration Rate 89 BUN/Creatinine Ratio 15 Glucose Level 109 H 70-105 MG/DL Calcium Level 8.9 8.5-10.1 MG/DL Corrected Calcium 8.9 8.5-10.1 MG/DL Magnesium Level 1.7 1.6-2.4 MG/DL Total Bilirubin 0.2 0.1-1.0 MG/DL Aspartate Amino Transf (AST/SGOT) 22 5-34 U/L Alanine Aminotransferase (ALT/SGPT) 15 0-55 U/L Alkaline Phosphatase 127 40-136 U/L C-Reactive Protein 1.90 H <0.50 MG/DL Total Protein 7.3 6.4-8.2 GM/DL Albumin 4.0 3.2-4.5 GM/DL Lipase 15 8-78 U/L My Orders Orders - GONZALO WILSON MD Cbc With Automated Diff (06/17/21 10:58) Comprehensive Metabolic Panel (06/17/21 10:58) Lipase (06/17/21 10:58) Magnesium (06/17/21 10:58) Ua Culture If Indicated (06/17/21 10:58) Crp Fs (06/17/21 10:58) Influenza A & B Antigens (06/17/21 10:58) Chest Pa/Lat (2 View) (06/17/21 10:58) Ondansetron Injection (Zofran Injectio (06/17/21 11:00) Ed Iv/Invasive Line Start (06/17/21 10:58) D5 Ns 1000 Ml Iv Solution (Dextrose 5%/0 (06/17/21 11:00) Methylprednisolone Sod Succ (Solu-Medrol (06/17/21 11:15) D5 Lr Iv Solution (Dextrose 5%/Lactated (06/17/21 11:10) D5 Lr Iv Solution (Dextrose 5%/Lactated (06/17/21 11:59) Medications Given in ED Current Medications Medications Dose Ordered Sig/David Route Start Time Stop Time Status Last Admin Dose Admin Dextrose/Lactated Ringer's 2,000 ml @ ud STK-MED ONCE IV 06/17/21 11:10 06/17/21 11:12 DC 06/17/21 11:17 999 MLS/HR Methylprednisolone Sodium Succinate 40 mg ONCE ONCE IV 06/17/21 11:15 06/17/21 11:16 DC 06/17/21 11:24 40 MG Ondansetron HCl 4 mg ONCE ONCE IVP 06/17/21 11:00 06/17/21 11:01 DC 06/17/21 11:17 4 MG Vital Signs/I&O 06/17/21 06/17/21 10:57 10:57 Temp 36.1 Pulse 86 Resp 19 B/P (MAP) 138/84 (102) O2 Delivery Room Air Room Air Progress Progress Note : Progress Note 65-year-old female with above history coming in due to cough, fever that has now relented, nausea, and diarrhea. ABCs were intact and vitals were stable on presentation. An IV was placed and basic labs were obtained as well as a urinalysis and chest x-ray. She was given a bolus of IV fluids as well as steroids given the worsening cough with history of COPD. Chest x-ray ordered and interpreted by me showing no acute abnormalities including no obvious pneumonia. White blood cell count normal, CRP just slightly elevated, normal kidney function, normal liver function. Vitals remained stable and I believe she is stable for discharge with outpatient follow-up. She was sent home with strict return precautions. Diagnostic Imaging Diagonstic Imaging: Xray Plain Films/CT/US/NM/MRI: chest Comments [facility], [place] NAME: LINDA SANON [facility] REC#: [id number] PT STATUS: REG ER : 1955 PHYSICIAN: GONZALO WILSON MD ADMIT DATE: 06/17/21/ER FS Draft Date of Exam:06/17/21 CHEST PA/LAT (2 VIEW) Indication: Cough and congestion for 2 weeks. TIME OF EXAM: 11:29 AM Correlation is made with prior chest 09/15/2019. FINDINGS: The heart size is normal. The pulmonary vascularity is unremarkable. The lungs are clear. No infiltrate, effusion or pneumothorax is detected. IMPRESSION: No acute cardiopulmonary process is detected. Dictated on workstation # [id number] Dict: 06/17/21 1133 Trans: 06/17/21 1138 [facility] [id number] Interpreted by: GLADIS VILLAGOMEZ MD Electronically signed by: Departure Impression Primary Impression: Upper respiratory infection Qualified Codes: J06.9 - Acute upper respiratory infection, unspecified Additional Impression: Diarrhea Qualified Codes: R19.7 - Diarrhea, unspecified Disposition: 01 HOME, SELF-CARE Condition: Stable Departure-Patient Inst. Decision time for Depature: 12:29 Referrals: GISSELLE KEVIN DO (PCP) Primary Care Physician CASEY KEVIN DNP (Family) Primary Care Physician Patient Instructions: Diarrhea, Adult ED, Bacterial Upper Respiratory Infection, Adult (DC) Add. Discharge Instructions: He was seen in the emergency department for your continued cough as well as diarrhea. Your labs are reassuring and your chest x-ray is clear. Your urine did appear like you are a little dehydrated so you did get some fluids. If you have any fever then take Tylenol 1000 mg. You can finish the steroids that you are prescribed and finish the antibiotics you are prescribed. Scripts Ondansetron (Ondansetron Odt) 4 Mg Tab.rapdis 4 MG PO Q6H PRN for NAUSEA-1ST LINE for 5 Days, #20 TAB Prov: GONZALO WILSON MD 06/17/21 GONZALO WILSON MD Jun 17, 2021 11:20
[2021-06-17 11:27] LABS: BASOPHILS # (AUTO) 0.1 10^3/uL (0.0-0.1); BASOPHILS % (AUTO) 1 % (0-10); EOSINOPHILS # (AUTO) 0.3 10^3/uL (0.0-0.3); EOSINOPHILS % (AUTO) 4 % (0-10); HEMATOCRIT 40 % (35-52); HEMOGLOBIN 13.4 g/dL (11.5-16.0); LYMPHOCYTES # (AUTO) 2.6 X 10^3 (1.0-4.0); LYMPHOCYTES % (AUTO) 36 % (12-44); MEAN CORPUSCULAR HEMOGLOBIN 31 pg (25-34); MEAN CORPUSCULAR HGB CONC 34 g/dL (32-36); MEAN CORPUSCULAR VOLUME 92 fL (80-99); MEAN PLATELET VOLUME 8.7 fL (9.0-12.2); MONOCYTES # (AUTO) 0.6 X 10^3 (0.0-1.0); MONOCYTES % (AUTO) 8 % (0-12); NEUTROPHILS # (AUTO) 3.7 X 10^3 (1.8-7.8); NEUTROPHILS % (AUTO) 52 % (42-75); PLATELET COUNT 513 10^3/uL (130-400); WHITE BLOOD COUNT 7.2 10^3/uL (4.3-11.0)
--- NOTE | 2021-06-17 11:38 | Diagnostic Imaging Report ---
Indication: Cough and congestion for 2 weeks. TIME OF EXAM: 11:29 AM Correlation is made with prior chest 09/15/2019. FINDINGS: The heart size is normal. The pulmonary vascularity is unremarkable. The lungs are clear. No infiltrate, effusion or pneumothorax is detected. IMPRESSION: No acute cardiopulmonary process is detected. Dictated by: Dictated on workstation # [id number]
[2021-06-17 11:47] LABS: BILIRUBIN,TOTAL 0.2 MG/DL (0.1-1.0); CALCIUM 8.9 MG/DL (8.5-10.1); CREATININE SERUM 0.67 MG/DL (0.60-1.30); MAGNESIUM 1.7 MG/DL (1.6-2.4); POTASSIUM 3.5 MMOL/L (3.6-5.0); TOTAL PROTEIN 7.3 GM/DL (6.4-8.2)
[2021-06-17] MEDS: D5 LR IV SOLUTION 1,000 ML IV STA (12:00)
[2021-06-17] MEDS ORDERED: ONDA4TAB11 PO (12:31)
[2021-06-17 12:51] VITALS: BP 121/69
== END 2021-06-17 12:51 | disposition home or self-care (01) ==
LOC: EDUNIT# 10:52 → ER FS 10:53
DX: J06.9 Acute upper respiratory infection, unspecified (principal); R19.7 Diarrhea, unspecified; I10 Essential (primary) hypertension; K21.9 Gastro-esophageal reflux disease without esophagitis; E03.9 Hypothyroidism, unspecified; F41.9 Anxiety disorder, unspecified; F32.9 Major depressive disorder, single episode, unspecified; Z79.890 Hormone replacement therapy; Z79.899 Other long term (current) drug therapy
CPT/HCPCS: 36415; 71046; 80053; 81000; 83690; 83735; 85025; 86141

== ENCOUNTER 2021-07-18 11:09 | Outpatient (CLI) | payer MEDICARE ==
[~2021-07-18] VITALS: Ht 160 cm; Wt 43.5 kg
[~2021-07-18 11:09] MED LIST changes: +ONDA4TAB11 PO
[2021-07-18 11:18] VITALS: BP 111/74
[2021-07-18] MEDS ORDERED: CASIRIVIMAB/IMDEVIMAB 1,200 MG in NS (IVPB) 50 ML IV ONE (11:30)
[2021-07-18] MEDS ORDERED: ACETAMINOPHEN 500 MG TAB (TYLENOL) PO PRN (11:30)
[2021-07-18] MEDS ORDERED: diphenhydrAMINE 50 MG/ML INJ (BENADRYL) IV PRN (11:30)
[2021-07-18] MEDS ORDERED: ONDANSETRON 4 MG/2 ML (SDV) Z0FRAN IV PRN (11:30)
[2021-07-18] MEDS ORDERED: EPINEPHrine INJECTION 1 MG/ML AMP IM PRN (11:30)
[2021-07-18 12:39] VITALS: BP 111/71
== END 2021-07-18 12:40 ==
LOC: INFUSION 11:09
PROVIDERS: ATTEND Nurse Practitioner Family
DX: U07.1 COVID-19 (principal); E11.9 Type 2 diabetes mellitus without complications

== ENCOUNTER → 2021-08-15 | Outpatient (CLI) | payer MEDICARE ==
--- NOTE | 2021-08-15 15:27 | Diagnostic Imaging Report ---
EXAMINATION: Digital mammogram bilateral screening with CAD. INDICATION: Screening. COMPARISON: This study was compared to the prior exams of 04/07/2020, 01/19/2019, and 01/17/2018. PERSONAL HISTORY: At this time, there are no current complaints. FINDINGS: The fibroglandular tissue in both breasts is heterogeneously dense. This does limit the sensitivity of this exam. Overall, there does not appear to have been any significant change when compared to the prior study. No primary or secondary sign of malignancy is noted. IMPRESSION: There is no radiographic evidence for malignancy. ACR BI-RADS Category 1: Negative. Result letter will be mailed to the patient. Note: At least 10% of breast cancer is not imaged by mammography. Dictated by: Dictated on workstation # [id number]
== END ==
LOC: RAD 12:31
PROVIDERS: ATTEND Nurse Practitioner Family
DX: Z12.31 Encounter for screening mammogram for malignant neoplasm of breast (principal)
CPT/HCPCS: 77063; 77067

== ENCOUNTER → 2021-09-01 | Outpatient (CLI) | payer MEDICARE ==
--- NOTE | 2021-09-01 11:22 | Diagnostic Imaging Report ---
PROCEDURE: MR imaging of the brain without contrast. TECHNIQUE: Multiplanar, multisequence MR imaging of the brain was performed without contrast. INDICATION: Headaches, history of Covid. FINDINGS: The previous MRI brain exam of 08/23/2016 failed to show any sign of an acute abnormality. On the T2 axial series of this exam, there is no mass, shift of the midline, or hemorrhage to suggest an acute intracranial abnormality. There is no abnormal signal arising from the brain on the diffusion series to indicate an area of acute ischemia either. The ventricles are within normal limits and stable in size when compared to the prior study. As noted on the prior exam, there are a few small areas of increased signal in the periventricular white matter bilaterally on the FLAIR series. These areas of altered signal may be slightly more conspicuous than on the prior exam but do not appear to have changed significantly. The sella is not enlarged and the expected carotid flow voids are evident bilaterally. The orbits are symmetrical and within normal limits. The sinuses are generally clear. The mastoid air cells are also clear. The 7th and 8th nerve complexes are unremarkable. IMPRESSION: There is no evidence for an acute intracranial abnormality. When compared to the previous study, there does not appear to have been any significant change. Dictated by: Dictated on workstation # [id number]
== END ==
LOC: RAD 10:15
PROVIDERS: ATTEND Nurse Practitioner Family
DX: G44.229 Chronic tension-type headache, not intractable (principal); H53.9 Unspecified visual disturbance; M79.18 Myalgia, other site; R42 Dizziness and giddiness; Z86.16 Personal history of COVID-19
CPT/HCPCS: 70551

== ENCOUNTER 2022-10-04 12:12 | Emergency (ER) | payer MEDICARE ==
[~2022-10-04] VITALS: Ht 160 cm; Wt 69.4 kg
[~2022-10-04 12:12] MED LIST changes: +ALBU8.5H6 IH; -RT-ALBUINH IH
[2022-10-04] MEDS ORDERED: FAMOTIDINE 20 MG (PEPCID) TABLET PO STA (12:36)
[2022-10-04] MEDS ORDERED: KETOROLAC 30 MG/ML VIAL IVP ONE (12:45)
[2022-10-04] MEDS ORDERED: PROCHLORPERAZINE 10 MG/2ML INJ (COMPAZINE) IV ONE (12:45)
[2022-10-04] MEDS ORDERED: ANTACID SUSP 30 ML UDC (MYLANTA) PO ONE (12:45)
[2022-10-04] MEDS ORDERED: NS IV 500 ML 500 ML IV ONE (12:45)
[2022-10-04] MEDS ORDERED: diphenhydrAMINE 50 MG/ML INJ (BENADRYL) IVP ONE (12:45)
[2022-10-04 12:58] LABS: BASOPHILS # (AUTO) 0.1 10^3/uL (0.0-0.1); BASOPHILS % (AUTO) 1 % (0-10); EOSINOPHILS # (AUTO) 0.5 10^3/uL (0.0-0.3); EOSINOPHILS % (AUTO) 7 % (0-10); HEMATOCRIT 42 % (35-52); LYMPHOCYTES # (AUTO) 2.2 10^3/uL (1.0-4.0); LYMPHOCYTES % (AUTO) 31 % (12-44); MEAN CORPUSCULAR HEMOGLOBIN 31 pg (25-34); MEAN CORPUSCULAR HGB CONC 34 g/dL (32-36); MEAN CORPUSCULAR VOLUME 93 fL (80-99); MEAN PLATELET VOLUME 9.1 fL (9.0-12.2); MONOCYTES # (AUTO) 0.7 10^3/uL (0.0-1.0); MONOCYTES % (AUTO) 10 % (0-12); NEUTROPHILS # (AUTO) 3.5 10^3/uL (1.8-7.8); NEUTROPHILS % (AUTO) 50 % (42-75); PLATELET COUNT 337 10^3/uL (130-400)
[2022-10-04 13:07] LABS: ALBUMIN 3.9 GM/DL (3.2-4.5); CHLORIDE 103 MMOL/L (98-107); POTASSIUM 3.7 MMOL/L (3.6-5.0); SODIUM 139 MMOL/L (135-145)
[2022-10-04 13:08] LABS: CALCIUM 9.2 MG/DL (8.5-10.1)
[2022-10-04 13:10] LABS: GLUCOSE 125 MG/DL (70-105); TOTAL PROTEIN 7.2 GM/DL (6.4-8.2)
[2022-10-04 13:11] LABS: BILIRUBIN,TOTAL 0.4 MG/DL (0.1-1.0); CARBON DIOXIDE 25 MMOL/L (21-32)
[2022-10-04 13:13] LABS: ALKALINE PHOSPHATASE 90 U/L (40-136)
[2022-10-04 13:14] LABS: CREATININE SERUM 0.84 MG/DL (0.60-1.30); GFR ESTIMATED 77
[2022-10-04 13:15] LABS: BUN/CREATININE RATIO 13; FIBRIN DEGRADATION PRODUCTS 0.48 UG/ML (0.00-0.49); PROTHROMBIN TIME PATIENT 13.6 SEC (12.2-14.7)
[2022-10-04 13:16] LABS: ALANINE AMINOTRANSFERASE 18 U/L (0-55); MAGNESIUM 2.1 MG/DL (1.6-2.4)
[2022-10-04 13:17] LABS: LIPASE 11 U/L (8-78)
[2022-10-04 13:23] LABS: ERYTHROCYTE SEDIMENTATION RATE 28 MM/HR (0-30)
--- NOTE | 2022-10-04 13:37 | Diagnostic Imaging Report ---
INDICATION: Bronchitis and sinus infection. Time of Exam: 1:01 PM Comparison is made with prior chest from 06/17/2021. FINDINGS: The heart size is normal. The pulmonary vascularity is unremarkable. The lungs are clear. No infiltrate, effusion or pneumothorax is detected. IMPRESSION: No acute cardiopulmonary process is detected. Dictated by: Dictated on workstation # [id number]
--- NOTE | 2022-10-04 13:41 | ED Cough/URI ---
General Chief Complaint: Cough/Cold/Flu Symptoms Stated Complaint: SORE THROAT | CONGESTION | HEADACHE Nursing Triage Note: pt has been feeling unwell x 1 week. saturday, pt was diagnosed with bronchitis, sinus infection, and right ear infection. pt placed onf abx but has only gotten worse since saturday. pt c/o productive cough, severe headache, and chest pain that radiates to back, nausea, and loses of taste and smell. pt has been tested for covid multiple times. Source: patient, old records Exam Limitations: no limitations History of Present Illness Date Seen by Provider: Oct 04, 2022 Time Seen by Provider: 12:15 Initial Comments 67-year-old female coming in due to roughly 1 week of general malaise, productive cough, ear pain, sore throat, shortness of breath, and chest discomfort. Was seen by her doctor, rapid flu and COVID were negative. Clinically looks like strep throat so was started on azithromycin and got a shot of Rocephin. She has been on codeine for her cough. The chest pain is more of a burning, goes through to her back, with some nausea, and she does note she lost her taste and smell. She does endorse fever early on in the course, none today. Otherwise denies any diarrhea, or any other concerns Allergies and Home Medications Allergies Coded Allergies: metoclopramide (Verified Allergy, Mild, 07/18/21) codeine (Verified Allergy, Unknown, 07/18/21) Patient Home Medication List Home Medication List Reviewed: Yes Albuterol Sulfate (Ventolin Hfa) 1 Puff Puff, 2 PUFF IH Q4H PRN for SHORTNESS OF BREATH, (Reported) Entered as Reported by: NEEL CARRILLO on 12/18/18 1138 Buspirone HCl (Buspirone HCl) 5 Mg Tablet, 5 MG PO DAILY, (Reported) Entered as Reported by: NEEL CARRILLO on 12/18/18 1135 Butalb/Acetaminophen/Caffeine (Ofcpxu-Dhrunciu-Vydh 50-325-40) 1 Each Tablet, 1 EACH PO PRN, (Reported) Entered as Reported by: NEEL CARRILLO on 12/18/18 1135 Carvedilol (Carvedilol) 12.5 Mg Tablet, 12.5 MG PO BID, (Reported) Entered as Reported by: NEEL CARRILLO on 12/18/18 1135 Cyclobenzaprine HCl (Cyclobenzaprine HCl) 10 Mg Tablet, 10 MG PO PRN, (Reported) Entered as Reported by: NEEL CARRILLO on 12/18/18 1135 Docusate Sodium (Docusate Sodium) 100 Mg Capsule, 100 MG PO BID PRN for CONSTIPATION-1ST LINE Prescribed by: ABIEL RAINEY on 12/25/18 1202 Duloxetine HCl (Duloxetine HCl) 60 Mg Capsule.dr, 60 MG PO DAILY, (Reported) Entered as Reported by: NEEL CARRILLO on 12/18/18 113 Estradiol (Estradiol Tablet) 1 Mg Tablet, 1 MG PO DAILY, (Reported) Entered as Reported by: SUKH CRYSTAL on 07/26/17 0918 Hydrocodone Bit/Acetaminophen (Lortab 7.5 Mg Tablet) 1 Ea Tablet, 2 EA PO Q6H PRN for Pain-See Instructions Prescribed by: ABIEL RAINEY on 12/25/18 1202 Ibuprofen (Ibu) 600 Mg Tablet, 600 MG PO Q6H PRN for PAIN-MODERATE Prescribed by: ABIEL RAINEY on 12/25/18 1202 Levothyroxine Sodium (Levothyroxine Sodium) 88 Mcg Tablet, 88 MCG PO DAILY, (Reported) Entered as Reported by: SUKH CRYSTAL on 07/26/17 0918 Lorazepam (Lorazepam) 1 Mg Tablet, 1 MG PO BID, (Reported) Entered as Reported by: NEEL CARRILLO on 12/18/18 1135 Ondansetron (Ondansetron Odt) 4 Mg Tab.rapdis, 4 MG PO Q6H PRN for NAUSEA-1ST LINE Prescribed by: GONZALO WILSON on 06/17/21 1231 Pantoprazole Sodium (Protonix) 40 Mg Tablet.dr, 40 MG PO BID, (Reported) Entered as Reported by: SUKH CRYSTAL on 07/26/17 0918 Semaglutide (Ozempic) 0.25 Mg/0.2 Ml Pen.injctr, 0.25 MG SQ WEEK, (Reported) Entered as Reported by: NEEL CARRILLO on 12/18/18 1135 Simethicone (Simethicone) 80 Mg Tab.chew, 40 MG PO TID PRN for INDIGESTION 2ND LINE Prescribed by: ABIEL RAINEY on 12/25/18 1202 Zolpidem Tartrate (Ambien) 5 Mg Tablet, 5 MG PO HS, (Reported) Entered as Reported by: NEEL CARRILLO on 12/18/18 1135 Review of Systems Review of Systems Constitutional: fever EENTM: ear pain Respiratory: cough Cardiovascular: chest pain Gastrointestinal: no symptoms reported Genitourinary: no symptoms reported Musculoskeletal: no symptoms reported Skin: no symptoms reported Psychiatric/Neurological: No Symptoms Reported Past Vrcrzmd-Tdtnww-Gdeffy Hx Patient Social History Tobacco Use?: No Substance use?: No Alcohol Use?: No Pt feels they are or have been: No Immunizations Up To Date Influenza Vaccine Up-to-Date: No; Not Current First/Initial COVID19 Vaccinat: UNKNOWN DATE Second COVID19 Vaccination Jovan: UNKNOWN DATE Seasonal Allergies Seasonal Allergies: No Past Medical History Surgeries: Yes (A&P X2, LAP AB X2, gastric bypass) Bladder Surgery, Gallbladder, Hysterectomy Respiratory: Yes (O2 2L AT NIGHT) Cardiac: Yes (MITRAL VALVE REGURG) Hypertension Neurological: Yes Headaches /Migraines, Neuropathy Reproductive Disorders: No Sexually Transmitted Disease: No HIV/AIDS: No Genitourinary: Yes Kidney Stones Gastrointestinal: Yes Gastroesophageal Reflux, Chronic Diarrhea, Hiatal Hernia Musculoskeletal: Yes Arthritis, Fibromyalgia Endocrine: Yes Hypothyroidsim HEENT: No (READING GLASSES) Loss of Vision: Denies Hearing Impairment: Denies Cancer: No Psychosocial: Yes Anxiety, Depression Integumentary: No Blood Disorders: No Adverse Reaction/Blood Tranf: No (N/A) Physical Exam Vital Signs - First Documented 10/04/22 12:20 Pulse 71 Resp 18 B/P (MAP) 130/78 (95) Pulse Ox 98 O2 Delivery Room Air Capillary Refill : Height: 5'4.00" Weight: 207lbs. 0.0oz. 93.144065bk; 27.00 BMI Method:Stated General Appearance: WD/WN, no apparent distress Eyes: Bilateral Eye Normal Inspection HEENT: PERRL/EOMI, normal ENT inspection, pharynx normal Neck: non-tender, full range of motion, supple, normal inspection Respiratory: chest non-tender, lungs clear, normal breath sounds, no respiratory distress, no accessory muscle use Cardiovascular: regular rate, rhythm, no edema, no murmur Gastrointestinal: normal bowel sounds, non tender, soft; No distended, No guarding, No rebound Extremities: normal range of motion, non-tender, normal inspection, no pedal edema, no calf tenderness, normal capillary refill Neurologic/Psychiatric: no motor/sensory deficits, alert, normal mood/affect Skin: normal color, warm/dry Progress/Results/Core Measures Suspected Sepsis SIRS Temperature: Pulse: 71 Respiratory Rate: 18 Laboratory Tests 10/04/22 12:49: White Blood Count 7.0 Blood Pressure 130 /78 Mean: 95 Laboratory Tests 10/04/22 12:49: Creatinine 0.84, INR Comment 1.0, Platelet Count 337, Total Bilirubin 0.4 Results/Orders Lab Results Laboratory Tests Test 10/04/22 12:49 10/04/22 13:09 Range/Units White Blood Count 7.0 4.3-11.0 10^3/uL Red Blood Count 4.46 3.80-5.11 10^6/uL Hemoglobin 14.0 11.5-16.0 g/dL Hematocrit 42 35-52 % Mean Corpuscular Volume 93 80-99 fL Mean Corpuscular Hemoglobin 31 25-34 pg Mean Corpuscular Hemoglobin Concent 34 32-36 g/dL Red Cell Distribution Width 13.2 10.0-14.5 % Platelet Count 337 130-400 10^3/uL Mean Platelet Volume 9.1 9.0-12.2 fL Immature Granulocyte % (Auto) 0 % Neutrophils (%) (Auto) 50 42-75 % Lymphocytes (%) (Auto) 31 12-44 % Monocytes (%) (Auto) 10 0-12 % Eosinophils (%) (Auto) 7 0-10 % Basophils (%) (Auto) 1 0-10 % Neutrophils # (Auto) 3.5 1.8-7.8 10^3/uL Lymphocytes # (Auto) 2.2 1.0-4.0 10^3/uL Monocytes # (Auto) 0.7 0.0-1.0 10^3/uL Eosinophils # (Auto) 0.5 H 0.0-0.3 10^3/uL Basophils # (Auto) 0.1 0.0-0.1 10^3/uL Immature Granulocyte # (Auto) 0.0 0.0-0.1 10^3/uL Erythrocyte Sedimentation Rate 28 0-30 MM/HR Prothrombin Time 13.6 12.2-14.7 SEC INR Comment 1.0 0.8-1.4 Activated Partial Thromboplast Time 29 24-35 SEC D-Dimer 0.48 0.00-0.49 UG/ML Sodium Level 139 135-145 MMOL/L Potassium Level 3.7 3.6-5.0 MMOL/L Chloride Level 103 98-107 MMOL/L Carbon Dioxide Level 25 21-32 MMOL/L Anion Gap 11 5-14 MMOL/L Blood Urea Nitrogen 11 7-18 MG/DL Creatinine 0.84 0.60-1.30 MG/DL Estimat Glomerular Filtration Rate 77 BUN/Creatinine Ratio 13 Glucose Level 125 H 70-105 MG/DL Calcium Level 9.2 8.5-10.1 MG/DL Corrected Calcium 9.3 8.5-10.1 MG/DL Magnesium Level 2.1 1.6-2.4 MG/DL Total Bilirubin 0.4 0.1-1.0 MG/DL Aspartate Amino Transf (AST/SGOT) 27 5-34 U/L Alanine Aminotransferase (ALT/SGPT) 18 0-55 U/L Alkaline Phosphatase 90 40-136 U/L Troponin I < 0.028 <0.028 NG/ML C-Reactive Protein High Sensitivity 5.85 H 0.00-0.50 MG/DL B-Type Natriuretic Peptide 14.6 <100.0 PG/ML Total Protein 7.2 6.4-8.2 GM/DL Albumin 3.9 3.2-4.5 GM/DL Lipase 11 8-78 U/L Influenza Type A (RT-PCR) Not Detected Not Detecte Influenza Type B (RT-PCR) Not Detected Not Detecte SARS-CoV-2 RNA (RT-PCR) Not Detected Not Detecte My Orders Orders - GONZALO WILSON MD Chest 1 View, Ap/Pa Only (10/04/22 12:36) Bnp [place] (10/04/22 12:36) Cbc With Automated Diff (10/04/22 12:36) Comprehensive Metabolic Panel (10/04/22 12:36) Hs C Reactive Protein (10/04/22 12:36) Erythrocyte Sedimentation Rate (10/04/22 12:36) Fibrin Degradation Products (10/04/22 12:36) Lipase (10/04/22 12:36) Magnesium (10/04/22 12:36) Protime With Inr (10/04/22 12:36) Partial Thromboplastin Time (10/04/22 12:36) Influenza A And B By Pcr (10/04/22 12:36) Ed Iv/Invasive Line Start (10/04/22 12:36) Ekg Tracing (10/04/22 12:36) Covid 19 Inhouse Test (10/04/22 12:36) Famotidine Tablet (Pepcid Tablet) (10/04/22 12:36) Antacid Suspension (Mylanta Suspension (10/04/22 12:45) Ketorolac Injection (Toradol Injection) (10/04/22 12:45) Prochlorperazine Injection (Compazine In (10/04/22 12:45) Diphenhydramine Injection (Benadryl Inje (10/04/22 12:45) Troponin I [place] (10/04/22 12:39) Ns Iv 500 Ml (Sodium Chloride 0.9%) (10/04/22 12:45) Medications Given in ED Current Medications Medications Dose Ordered Sig/David Route Start Time Stop Time Status Last Admin Dose Admin Al Hydrox/Mg Hydrox/Simethicone 30 ml ONCE ONCE PO 10/04/22 12:45 10/04/22 12:46 DC 10/04/22 12:42 30 ML Diphenhydramine HCl 25 mg ONCE ONCE IVP 10/04/22 12:45 10/04/22 12:46 DC 10/04/22 12:43 25 MG Ketorolac Tromethamine 15 mg ONCE ONCE IVP 10/04/22 12:45 10/04/22 12:46 DC 10/04/22 12:43 15 MG Prochlorperazine Edisylate 10 mg ONCE ONCE IV 10/04/22 12:45 10/04/22 12:46 DC 10/04/22 12:43 10 MG Sodium Chloride 500 ml @ 0 mls/hr Q0M ONCE IV 10/04/22 12:45 10/04/22 12:46 DC 10/04/22 12:46 0 MLS/HR Vital Signs/I&O 10/04/22 12:20 Pulse 71 Resp 18 B/P (MAP) 130/78 (95) Pulse Ox 98 O2 Delivery Room Air Capillary Refill : Blood Pressure Mean: 95 Progress Note : Progress Note 67yoF with above history coming in due to cough, shortness of breath, chest discomfort. ABCs were intact and vitals were stable on presentation. Physical exam with clear lung gomez, and otherwise nontoxic-appearing. EKG with no acute ischemic changes on my interpretation. Chest x-ray my interpretation with no obvious pneumothorax, no pneumonia, cardiac silhouette appears normal. An IV was placed and basic labs were obtained and were significant for normal white blood cell count, normal ESR, CRP slightly elevated, but lower than its been in the past, normal kidney function, negative troponin, negative D-dimer. PE very unlikely given she is not tachycardic, not hypoxic, no clinical signs of DVT, and negative D-dimer. This does seem to be more upper respiratory in nature. She is being treated as an outpatient with antibiotics which I would not make any changes to this. For her headache, she did receive IV Compazine, Benadryl, and IV fluids which helped significantly. We will send a prescription for the Compazine to be taken at home if needed. I believe she is otherwise stable for discharge with outpatient follow-up. She was sent home with strict return precautions ECG Initial ECG Impression Date: Oct 04, 2022 Initial ECG Impression Time: 13:15 Initial ECG Rate: 54 Initial ECG Rhythm: S.Mendoza Comment Narrow QRS, normal axis, no significant ST changes or T wave abnormality Diagnostic Imaging Diagonstic Imaging: Xray (chest) Comments [facility], [place] NAME: LINDA [facility] REC#: [id number] PT STATUS: REG ER : 1955 PHYSICIAN: GONZALO WILSON MD ADMIT DATE: 10/04/22/ER Draft Date of Exam:10/04/22 CHEST 1 VIEW, AP/PA ONLY INDICATION: Bronchitis and sinus infection. Time of Exam: 1:01 PM Comparison is made with prior chest from 06/17/2021. FINDINGS: The heart size is normal. The pulmonary vascularity is unremarkable. The lungs are clear. No infiltrate, effusion or pneumothorax is detected. IMPRESSION: No acute cardiopulmonary process is detected. Dictated on workstation # [id number] Dict: 10/04/22 1333 Trans: 10/04/22 1336 [id number] Interpreted by: GLADIS VILLAGOMEZ MD Electronically signed by: Departure Impression Primary Impression: URI (upper respiratory infection) Qualified Codes: J06.9 - Acute upper respiratory infection, unspecified Disposition: HOME, SELF-CARE Condition: Stable Departure-Patient Inst. Decision time for Depature: 14:24 Referrals: GISSELLE KEVIN DO (PCP) Primary Care Physician CASEY KEVIN DNP (Family) Primary Care Physician Patient Instructions: Acute Bronchitis, Adult (DC) Add. Discharge Instructions: Be sure to finish the antibiotics that were prescribed to you. Compazine was sent to your pharmacy, you can take this for headache or nausea. Take it with Benadryl if you do as it can help with the symptoms as well. This will make you sleepy. Please follow-up with your regular doctor if you are not seeing improvement. As we discussed, if you are having a lot of reflux, cough, and chest burning, it may be worth discussing getting a repeat upper GI scope. Scripts Prochlorperazine Maleate (Compazine) 10 Mg Tablet 10 MG PO Q8H PRN for NAUSEA/VOMITING-1ST LINE for 5 Days, #15 TAB Prov: GONZALO WILSON MD 10/04/22 Work/School Note: Work Release Form Date Seen in the Emergency Department: Oct 04, 2022 Return to Work: Oct 06, 2022 Restrictions: No Restrictions GONZALO WILSON MD Oct 04, 2022 13:41
[2022-10-04] MEDS ORDERED: PROC-1 PO (14:26)
[2022-10-04 14:48] VITALS: BP 91/69
== END 2022-10-04 14:48 | disposition home or self-care (01) ==
LOC: EDUNIT# 12:12 → ER 12:14
DX: J06.9 Acute upper respiratory infection, unspecified (principal); R79.82 Elevated C-reactive protein (CRP); Z99.81 Dependence on supplemental oxygen; Z20.822 Contact with and (suspected) exposure to COVID-19
CPT/HCPCS: 36415; 71045; 80053; 83690; 83735; 83880; 84484; 85025; 85379; 85610; 85652; 85730; 86141; 87636; 93005

== ENCOUNTER → 2023-06-04 | Outpatient (CLI) | payer MEDICARE ==
[~2023-06-04] MED LIST changes: +NEBI5TAB2 PO; -NEBI5TAB8 PO; +PROC-1 PO
--- NOTE | 2023-06-04 17:36 | Diagnostic Imaging Report ---
3-D bilateral screening mammogram with CAD. This study was compared to the prior exams of 08/15/2021 and 04/07/2020. At this time there are no current complaints. The current study was also evaluated with a Computer Aided Detection (CAD) system. FINDINGS: The fibroglandular tissue in both breasts is heterogeneously dense. This does limit the sensitivity of this exam. Overall, there does not appear to have been any significant change when compared to the prior study. No primary or secondary sign of malignancy is noted. IMPRESSION: There is no radiographic evidence for malignancy. ACR BI-RADS Category 1: Negative. Result letter will be mailed to the patient. Note: At least 10% of breast cancer is not imaged by mammography. Dictated by: Dictated on workstation # [id number]
== END ==
LOC: RAD 13:13
PROVIDERS: ATTEND Nurse Practitioner Family
DX: Z12.31 Encounter for screening mammogram for malignant neoplasm of breast (principal)
CPT/HCPCS: 77063; 77067